=== PATIENT | female | born 1955 | race Caucasian/White ===

== ENCOUNTER 2019-10-31 06:20 | Day surgery (SDC) | payer MEDICAID ==
[2019-10-31] MEDS ORDERED: Lactated Ringers 1,000 ML IV SCH (07:00)
[2019-10-31] MEDS ORDERED: Propofol 200 MG/20 ML SDV ONE (07:33)
[2019-10-31] MEDS ORDERED: fentaNYL 100 MCG/2 ML SDV ONE (07:34)
[2019-10-31] MEDS ORDERED: Midazolam 1 MG/ML 2 ML SDV ONE (07:34)
[2019-10-31] MEDS ORDERED: Ampicillin 2 GM in Sodium Chloride 0.9% 100 ML IV ONE (07:45)
--- NOTE | 2019-10-31 13:34 | OR ---
DATE OF PROCEDURE: 10/31/2019 SURGEON: Ruslan Nunez MD PREOPERATIVE DIAGNOSES: Personal history of precancerous colon polyps, strong family history of colon cancer in sister. POSTOPERATIVE DIAGNOSES: Personal history of precancerous colon polyps, strong family history of colon cancer in sister. Two small colon polyps, transverse colon and rectum. PROCEDURES PERFORMED: Colonoscopy to the cecum with biopsy resection of small transverse colon and rectal polyps. ANESTHESIA: IV anesthesia with monitored anesthesia care. INDICATION: This 64-year-old white female is here for a colonoscopy because of a history of precancerous polyps. Her last colonoscopic exam was done 5 years ago at the [facility]. I counseled her for the procedure, including risks and alternatives, and she gave her informed consent to proceed. DESCRIPTION OF PROCEDURE: The patient was placed in the left lateral decubitus position. IV anesthesia was administered by the anesthesia service. Time-out was held. A rectal exam was performed, which was unremarkable. The flexible video Olympus colonoscope was introduced through her anus, up her rectum and out her colon, all the way to the cecum. En route, in the transverse colon, we saw a small polyp, which was removed with a couple of bites of the biopsy forceps. Once the cecum was reached, the scope was slowly withdrawn examining the mucosa throughout. No additional mucosal abnormalities were noted until we reached the rectum. Here, a small polyp was seen, which was removed with the biopsy forceps. The scope was retroflexed in the rectum with the distal rectum appearing unremarkable. The scope was straightened and removed. She tolerated the procedure well. Ruslan Nunez MD /[id number]
== END 2019-10-31 09:43 | disposition home or self-care (01) ==
LOC: JP.SDS 06:20
PROVIDERS: ATTEND Surgery
DX: Z12.11 Encounter for screening for malignant neoplasm of colon (principal); K63.5 Polyp of colon; K62.89 Other specified diseases of anus and rectum; G47.33 Obstructive sleep apnea (adult) (pediatric); M79.7 Fibromyalgia; E66.9 Obesity, unspecified; Z68.34 Body mass index [BMI] 34.0-34.9, adult; Z99.89 Dependence on other enabling machines and devices; Z86.010 Personal history of colon polyps; Z80.0 Family history of malignant neoplasm of digestive organs
CPT/HCPCS: 45380; J0290; J2250; J2704; J3010; J7030; J7120; 88305

== ENCOUNTER 2019-12-31 12:26 | Emergency (ER) | payer MEDICAID ==
--- NOTE | 2019-12-31 13:44 | EDM.PDOC ---
ED HPI GENERAL MEDICAL PROBLEM - General Chief Complaint: ENT Problem Stated Complaint: L EAR INFECTION Time Seen by Provider: 12/31/19 13:30 Source of Information: Reports: Patient History Limitations: Reports: No Limitations - History of Present Illness INITIAL COMMENTS - FREE TEXT/NARRATIVE: 64-year-old female with left ear pain for the past week, worsening over the past 48 hours despite being on amoxicillin. She had cold symptoms over the past 2 weeks, and tends to get chronic recurring ear infections although it has been good for the past year. No fevers or chills. Onset: Gradual Duration: Day(s): (Several days) Associated Symptoms: Reports: Other (Recent cold symptoms such as nasal congestion, cough and sore throat) Left Ear Pain Score (Numeric/FACES): 8 - Related Data Allergies Allergy/AdvReac Type Severity Reaction Status Date / Time adhesive tape Allergy Rash Verified 12/31/19 12:57 erythromycin base Allergy Other Verified 12/31/19 12:57 glycopyrrolate Allergy Hypertensio Verified 12/31/19 12:57 n meperidine Allergy Hypertensio Verified 12/31/19 12:57 n metoprolol Allergy Rash Verified 12/31/19 12:57 Home Meds: Home Meds Calcium Carbonate/Vitamin D3 [Calcium Carbonate/Vitamin D 600 MG-200 Unit] 1 tab PO DAILY 10/26/19 [History] Estrogens, Conjugated [Premarin Vaginal Crm] 1 applic VAG .Q72 10/26/19 [History ] Nortriptyline 20 mg PO BEDTIME 10/26/19 [History] Pravastatin Sodium 80 mg PO DAILY 10/26/19 [History] FLUoxetine HCl [Fluoxetine HCl] 20 mg PO DAILY 10/31/19 [History] Lansoprazole [Prevacid] 30 mg PO DAILY 10/31/19 [History] Magnesium Oxide [Magnesium] 400 mg PO DAILY 10/31/19 [History] Amoxicillin 875 mg PO BID 12/31/19 [History] Past Medical History HEENT History: Reports: Other (See Below) Other HEENT History: wears glasses Cardiovascular History: Reports: Arrhythmia, Blood Clots/VTE/DVT, High Cholesterol, Hypertension Respiratory History: Reports: Sleep Apnea Gastrointestinal History: Reports: Colon Polyp, Diverticulosis, GERD, Hemorrhoids, Other (See Below) Other Gastrointestinal History: anal fissure, bleeding from polypectomy site after colonoscopy Genitourinary History: Reports: UTI, Recurrent PAINT SPRAY TENDER History: Reports: , Spontaneous , Other (See Below) Other PAINT SPRAY TENDER History: ovarian cysts Musculoskeletal History: Reports: Arthritis, Fibromyalgia, Other (See Below) Other Musculoskeletal History: SI joint pain Psychiatric History: Reports: Anxiety, Depression Endocrine/Metabolic History: Reports: Obesity/BMI 30+ Hematologic History: Reports: Anemia Oncologic (Cancer) History: Reports: Basal Cell Carcinoma, Other (See Below) Other Oncologic History: skin cancer on chin - Infectious Disease History Infectious Disease History: Reports: Chicken Pox, Mumps - Past Surgical History HEENT Surgical History: Reports: Adenoidectomy, Tonsillectomy, Other (See Below) Other HEENT Surgeries/Procedures: deviated septum repaired, 2 teeth implanted GI Surgical History: Reports: Appendectomy, Colonoscopy, EGD Female Surgical History: Reports: Other (See Below) Other Female Surgeries/Procedures: right ovary removed Neurological Surgical History: Reports: Lumbar Spine, Spinal Fusion Musculoskeletal Surgical History: Reports: Other (See Below) Other Musculoskeletal Surgeries/Procedures:: back fusion Nov 2018 Dermatological Surgical History: Reports: Other (See Below) Social & Family History - Tobacco Use Smoking Status *Q: Never Smoker Second Hand Smoke Exposure: No - Caffeine Use Caffeine Use: Reports: Coffee - Alcohol Use Days Per Week of Alcohol Use: 1 Number of Drinks Per Day: 2 Total Drinks Per Week: 2 - Recreational Drug Use Recreational Drug Use: No ED ROS ENT - Review of Systems Review Of Systems: See Below Constitutional: Reports: Malaise. Denies: Fever, Chills HEENT: Reports: Ear Pain Respiratory: Reports: Cough. Denies: Shortness of Breath Cardiovascular: Denies: Chest Pain GI/Abdominal: Denies: Abdominal Pain, Nausea, Vomiting Neurological: Reports: Headache ED EXAM, ENT - Physical Exam Exam: See Below Exam Limited By: No Limitations General Appearance: Alert, No Apparent Distress Eye Exam: Bilateral Eye: Normal Inspection Ears: Other (Right eardrum is normal, left is reddened, bulging, the upper aspect looks wet) Mouth/Throat: Normal Inspection Head: Other (Some palpation tenderness around the anterior left ear and TMJ area ) Neck: No: Lymphadenopathy (R), Lymphadenopathy (L) Respiratory/Chest: No Respiratory Distress Course - Vital Signs Last Recorded V/S: Last Vital Signs Temp 96.8 F 12/31/19 13:07 Pulse 95 12/31/19 13:07 Resp 16 12/31/19 13:07 BP 158/97 H 12/31/19 13:07 Pulse Ox 98 12/31/19 13:07 - Re-Assessments/Exams Free Text/Narrative Re-Assessment/Exam: 12/31/19 13:42 Patient was given 10 hydrocodone to take along with the ibuprofen, and started on clindamycin 300 mg 3 times a day to be added to the amoxicillin regimen. Recheck in 48 to 72 hours if not improving. Departure - Departure Time of Disposition: 14:01 Disposition: Home, Self-Care Clinical Impression: Left otitis media with effusion - Discharge Information Instructions: Otitis Media, Adult Referrals: Malika Cota PA-C [Primary Care Provider] - Forms: ED Department Discharge Care Plan Goals: Continue with the amoxicillin, take 2 pills of antibiotic 3 times a day as prescribed and continue with ibuprofen. Add stronger pain medication as directed if needed, and call the clinic on Thursday if not improving satisfactorily. Sepsis Event Note - Evaluation Sepsis Screening Result: No Definite Risk - Focused Exam Vital Signs: Vital Signs Temp Pulse Resp BP Pulse Ox 12/31/19 13:07 96.8 F 95 16 158/97 H 98 12/31/19 12:51 96.8 F 95 16 158/97 H 98 Date Exam was Performed: 12/31/19 Time Exam was Performed: 14:00
== END 2019-12-31 14:02 | disposition home or self-care (01) ==
LOC: JP.ED 12:26
CPT/HCPCS: 99282

== ENCOUNTER 2021-01-22 09:33 | Emergency (ER) | payer MEDICAID ==
--- NOTE | 2021-01-22 09:56 | EDM.PDOC ---
ED HPI GENERAL MEDICAL PROBLEM - General Chief Complaint: Chest Pain Stated Complaint: CHEST PAIN Time Seen by Provider: 01/22/21 09:54 Source of Information: Reports: Patient, Old Records, RN History Limitations: Reports: No Limitations - History of Present Illness INITIAL COMMENTS - FREE TEXT/NARRATIVE: 65 yo female presents with sternal tenderness that began last night. Is painful with touching area. Has a FHx of CAD, but not a personal hx. No associated symptoms. Has a pHx of fibromyalgia and SI joint inflammation. Onset: Gradual Onset Date: 01/21/21 Duration: Hour(s):, Constant, Getting Worse Location: Reports: Chest Quality: Reports: Ache Severity: Mild Improves with: Reports: Rest Worsens with: Reports: Other (deep breathing or pressing on area. ) Context: Reports: Other (See HPI) Associated Symptoms: Reports: No Other Symptoms, Chest Pain Treatments ACCOUNT INFORMATION CLERK: Reports: Other (see below) (none) Chest Pain Score (Numeric/FACES): 6 - Related Data Allergies Allergy/AdvReac Type Severity Reaction Status Date / Time adhesive tape Allergy Rash Verified 01/22/21 09:52 erythromycin base Allergy Other Verified 01/22/21 09:52 glycopyrrolate Allergy Hypertensio Verified 01/22/21 09:52 n meperidine Allergy Hypertensio Verified 01/22/21 09:52 n metoprolol Allergy Rash Verified 01/22/21 09:52 Home Meds: Home Meds Calcium Carbonate/Vitamin D3 [Calcium Carbonate/Vitamin D 600 MG-200 Unit] 1 tab PO DAILY 10/26/19 [History] Estrogens, Conjugated [Premarin Vaginal Crm] 1 applic VAG .TWICEWEEKLY 10/26/19 [History] Nortriptyline 20 mg PO BEDTIME 10/26/19 [History] Pravastatin Sodium 80 mg PO DAILY 10/26/19 [History] FLUoxetine HCl [Fluoxetine HCl] 20 mg PO DAILY 10/31/19 [History] Lansoprazole [Prevacid] 30 mg PO DAILY 10/31/19 [History] Magnesium Oxide [Magnesium] 400 mg PO DAILY 10/31/19 [History] Past Medical History HEENT History: Reports: Other (See Below) Other HEENT History: wears glasses Cardiovascular History: Reports: Arrhythmia, Blood Clots/VTE/DVT, High Cholesterol, Hypertension Respiratory History: Reports: Sleep Apnea Gastrointestinal History: Reports: Colon Polyp, Diverticulosis, GERD, Hemorrhoids, Other (See Below) Other Gastrointestinal History: anal fissure, bleeding from polypectomy site after colonoscopy Genitourinary History: Reports: UTI, Recurrent RELISH MAKER History: Reports: , Spontaneous , Other (See Below) Other RELISH MAKER History: ovarian cysts Musculoskeletal History: Reports: Arthritis, Fibromyalgia, Other (See Below) Other Musculoskeletal History: SI joint pain Psychiatric History: Reports: Anxiety, Depression Endocrine/Metabolic History: Reports: Obesity/BMI 30+ Hematologic History: Reports: Anemia Oncologic (Cancer) History: Reports: Basal Cell Carcinoma, Other (See Below) Other Oncologic History: skin cancer on chin - Infectious Disease History Infectious Disease History: Reports: Chicken Pox, Mumps - Past Surgical History HEENT Surgical History: Reports: Adenoidectomy, Tonsillectomy, Other (See Below) Other HEENT Surgeries/Procedures: deviated septum repaired, 2 teeth implanted GI Surgical History: Reports: Appendectomy, Colonoscopy, EGD Female Surgical History: Reports: Other (See Below) Other Female Surgeries/Procedures: right ovary removed Neurological Surgical History: Reports: Lumbar Spine, Spinal Fusion Musculoskeletal Surgical History: Reports: Other (See Below) Other Musculoskeletal Surgeries/Procedures:: back fusion Nov 2018 Dermatological Surgical History: Reports: Other (See Below) Social & Family History - Caffeine Use Caffeine Use: Reports: Coffee ED ROS GENERAL - Review of Systems Review Of Systems: See Below Constitutional: Reports: No Symptoms HEENT: Reports: No Symptoms Respiratory: Reports: No Symptoms Cardiovascular: Reports: Chest Pain Endocrine: Reports: No Symptoms GI/Abdominal: Reports: No Symptoms : Reports: No Symptoms Musculoskeletal: Reports: No Symptoms Skin: Reports: No Symptoms Neurological: Reports: No Symptoms Psychiatric: Reports: No Symptoms ED EXAM, GENERAL - Physical Exam Exam: See Below Exam Limited By: No Limitations General Appearance: Alert, WD/WN, No Apparent Distress, Obese Eye Exam: Bilateral Eye: Normal Inspection Ears: Normal External Exam, Normal Canal, Hearing Grossly Normal Ear Exam: Bilateral Ear: Auricle Normal, Canal Normal Nose: Normal Inspection, No Blood Throat/Mouth: Normal Inspection, Normal Lips, Normal Oropharynx, Normal Voice, No Airway Compromise Head: Atraumatic, Normocephalic Neck: Normal Inspection Respiratory/Chest: No Respiratory Distress, Lungs Clear, Normal Breath Sounds, No Accessory Muscle Use. No: Chest Non-Tender (sternal tenderness, especially at L lateral border) Cardiovascular: Regular Rate, Rhythm, No Edema GI/Abdominal: Soft, Non-Tender, No Distention Extremities: Normal Inspection, Normal Range of Motion, Non-Tender, No Pedal Edema Neurological: Alert, Oriented, CN II-XII Intact, Normal Cognition, No Motor/Sensory Deficits Psychiatric: Normal Affect, Normal Mood Skin Exam: Warm, Dry, Intact, Normal Color, No Rash #1 Interpretation EKG Date: 01/22/21 Time: 09:45 Rhythm: NSR Rate (Beats/Min): 93 [place]: Normal P-Wave: Present QRS: Other (left anterior fascicular block) ST-T: Normal QT: Normal Comparison: NA - No Prior EKG Course - Vital Signs Last Recorded V/S: Last Vital Signs Temp 36.2 C 01/22/21 09:56 Pulse 92 01/22/21 09:56 Resp 14 01/22/21 09:56 BP 141/93 H 01/22/21 09:56 Pulse Ox 95 01/22/21 09:56 - Orders/Labs/Meds Orders: Active Orders 24 hr Category Date Time Status EKG Documentation Completion [RC] ASDIRECTED Care 01/22/21 09:46 Active EKG 12 Lead [EK] Routine Ther 01/22/21 09:46 Ordered Meds: Medications Discontinued Medications Generic Name Dose Route Start Last Admin Trade Name [place] PRN Reason Stop Dose Admin Ketorolac Tromethamine 60 mg 01/22/21 10:06 01/22/21 10:26 Toradol IM 01/22/21 10:07 60 mg ONETIME ONE Administration - Re-Assessments/Exams Free Text/Narrative Re-Assessment/Exam: 01/22/21 11:07 partial relief with Toradol IM Departure - Departure Time of Disposition: 11:10 Disposition: Home, Self-Care 01 Condition: Good Clinical Impression: Costochondritis Instructions: Costochondritis, [id number] Referrals: Malika Cota PA-C [Primary Care Provider] - Forms: ED Department Discharge Additional Instructions: Take celecoxib as directed. Add acetaminophen for added relief. Recheck with your provider by Thursday afternoon. Sepsis Event Note (ED) - Focused Exam Vital Signs: Vital Signs Temp Pulse Resp BP Pulse Ox 01/22/21 09:56 36.2 C 92 14 141/93 H 95 01/22/21 09:51 36.2 C 92 14 141/93 H 95 - My Orders Last 24 Hours: My Active Orders 01/22/21 09:46 EKG Documentation Completion [RC] ASDIRECTED EKG 12 Lead [EK] Routine - Assessment/Plan Last 24 Hours: My Active Orders 01/22/21 09:46 EKG Documentation Completion [RC] ASDIRECTED EKG 12 Lead [EK] Routine
[2021-01-22] MEDS ORDERED: Ketorolac 60 MG/2 ML SDV IM ONE (10:06)
== END 2021-01-22 11:17 | disposition home or self-care (01) ==
LOC: JP.ED 09:33
DX: M94.0 Chondrocostal junction syndrome [Tietze] (principal); I44.4 Left anterior fascicular block; E78.00 Pure hypercholesterolemia, unspecified; I10 Essential (primary) hypertension; K21.9 Gastro-esophageal reflux disease without esophagitis; E66.9 Obesity, unspecified; Z68.45 Body mass index [BMI] 70 or greater, adult; Z91.048 Other nonmedicinal substance allergy status; Z88.1 Allergy status to other antibiotic agents; Z88.8 Allergy status to other drugs, medicaments and biological substances; Z79.899 Other long term (current) drug therapy
CPT/HCPCS: 93005; 96372; 99283; 99284; J1885

== ENCOUNTER 2021-07-20 17:23 | Observation (INO) | payer MEDICAID ==
--- NOTE | 2021-07-20 18:07 | EDM.PDOC ---
ED HPI GENERAL MEDICAL PROBLEM - General Chief Complaint: Lower Extremity Injury/Pain Stated Complaint: FELL, KNEE GAVE OUT Time Seen by Provider: 07/20/21 18:06 Source of Information: Reports: Patient, RN Notes Reviewed History Limitations: Reports: No Limitations - History of Present Illness INITIAL COMMENTS - FREE TEXT/NARRATIVE: Amanda presents today with complaints of fall while walking down stairs. she states she fell forward onto her left knee and breanne her left thigh and hip. She states she cannot walk on her left leg, she was not able to get up without assistance of her . She reports a history of chronic back pain from L4 to S1 with bilateral SI joint pain. She also reports numbness and lack of sensation to left heel and left lateral foot status post spinal surgery. She states this is chronic. Amanda reports intermittent nausea with pain, denies vomiting at this time. She denies left foot drop. She denies LOC, fever, chills, bladder or bowel issues. - Related Data Allergies Allergy/AdvReac Type Severity Reaction Status Date / Time adhesive tape Allergy Rash Verified 07/20/21 17:42 erythromycin base Allergy Other Verified 07/20/21 17:42 glycopyrrolate Allergy Hypertensio Verified 07/20/21 17:42 n meperidine Allergy Hypertensio Verified 07/20/21 17:42 n metoprolol Allergy Rash Verified 07/20/21 17:42 Home Meds: Home Meds Calcium Carbonate/Vitamin D3 [Calcium Carbonate/Vitamin D 600 MG-200 Unit] 1 tab PO DAILY 10/26/19 [History] Estrogens, Conjugated [Premarin Vaginal Crm] 1 applic VAG .TWICEWEEKLY 10/26/19 [History] Nortriptyline 20 mg PO BEDTIME 10/26/19 [History] Pravastatin Sodium 80 mg PO BEDTIME 10/26/19 [History] FLUoxetine HCl [Fluoxetine HCl] 20 mg PO DAILY 10/31/19 [History] Lansoprazole [Prevacid] 30 mg PO DAILY 10/31/19 [History] Magnesium Oxide [Magnesium] 400 mg PO DAILY 10/31/19 [History] Past Medical History HEENT History: Reports: Impaired Vision, Other (See Below) Other HEENT History: wears glasses Cardiovascular History: Reports: Arrhythmia, Blood Clots/VTE/DVT, High Cholesterol, Hypertension Respiratory History: Reports: Sleep Apnea Other Respiratory History: c-pap Gastrointestinal History: Reports: Colon Polyp, Diverticulosis, GERD, Hemorrhoids, Other (See Below) Other Gastrointestinal History: anal fissure, bleeding from polypectomy site after colonoscopy Genitourinary History: Reports: UTI, Recurrent 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: , 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 , Other (See Below) Other 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 TELECOMMUNICATIONS 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 History: ovarian cysts Musculoskeletal History: Reports: Arthritis, Fibromyalgia, Other (See Below) Other Musculoskeletal History: SI joint pain Psychiatric History: Reports: Anxiety, Depression Endocrine/Metabolic History: Reports: Obesity/BMI 30+ Hematologic History: Reports: Anemia Oncologic (Cancer) History: Reports: Basal Cell Carcinoma, Other (See Below) Other Oncologic History: skin cancer on chin - Infectious Disease History Infectious Disease History: Reports: Chicken Pox, Influenza, Mumps - Past Surgical History HEENT Surgical History: Reports: Adenoidectomy, Tonsillectomy, Other (See Below) Other HEENT Surgeries/Procedures: deviated septum repaired, 2 teeth implanted GI Surgical History: Reports: Appendectomy, Colonoscopy, EGD Female Surgical History: Reports: Other (See Below) Other Female Surgeries/Procedures: right ovary removed Neurological Surgical History: Reports: Lumbar Spine, Spinal Fusion Musculoskeletal Surgical History: Reports: Other (See Below) Other Musculoskeletal Surgeries/Procedures:: back fusion Nov 2018 and Fx L3 after a fall Dermatological Surgical History: Reports: Other (See Below) Social & Family History - Tobacco Use Tobacco Use Status *Q: Never Tobacco User Second Hand Smoke Exposure: No - Caffeine Use Caffeine Use: Reports: Coffee Other Caffeine Use: 2 large cups of coffee every morning - Alcohol Use Days Per Week of Alcohol Use: 2 Number of Drinks Per Day: 2 Total Drinks Per Week: 4 - Recreational Drug Use Recreational Drug Use: No Review of Systems - Review of Systems Review Of Systems: See Below Constitutional: Reports: No Symptoms Eyes: Reports: No Symptoms Ears: Reports: No Symptoms Nose: Reports: No Symptoms Mouth/Throat: Reports: No Symptoms Respiratory: Reports: No Symptoms Cardiovascular: Reports: No Symptoms GI/Abdominal: Reports: No Symptoms Genitourinary: Reports: No Symptoms Musculoskeletal: Reports: Leg Pain, Other (pain to right index finger, pain to left knee, left thigh and left hip. Not able to ambulate. She reports chronic back and SI joing pain, chronic pain to bilateral knees and chronic numbness to left heel, left lateral foot. ) Skin: Reports: Other (Abrasion to bilateral knees, right index finger, right hand, left wrist). Denies: Erythema Neurological: Reports: No Symptoms Psychiatric: Reports: No Symptoms ED EXAM, GENERAL - Physical Exam Exam: See Below Exam Limited By: No Limitations General Appearance: Alert, WD/WN, Moderate Distress Eye Exam: Bilateral Eye: Normal Inspection, PERRL Ears: Normal External Exam, Normal Canal, Hearing Grossly Normal, Normal TMs Ear Exam: Bilateral Ear: TM normal Nose: Normal Inspection, Normal Mucosa, No Blood Throat/Mouth: Normal Inspection, Normal Lips, Normal Gums, Normal Oropharynx, Normal Voice, No Airway Compromise Head: Atraumatic, Normocephalic Neck: Normal Inspection, Supple, Non-Tender, Full Range of Motion. No: Lymphadenopathy (R), Lymphadenopathy (L) Respiratory/Chest: No Respiratory Distress, Lungs Clear, Normal Breath Sounds, No Accessory Muscle Use, Chest Non-Tender Cardiovascular: Normal Peripheral Pulses, Regular Rate, Rhythm, No Edema, No Gallop, No Murmur, No Rub Peripheral Pulses: 4+: Radial (L), Radial (R), Dorsalis Pedis (L), Dorsalis Pedis (R) GI/Abdominal: Normal Bowel Sounds, Soft, Non-Tender, No Organomegaly, No Distention. No: Guarding, Rigid, Rebound, Tender (Female) Exam: Deferred Rectal (Female) Exam: Deferred Back Exam: Normal Inspection (per her baseline of chronic low back pain, SI joint pain). No: CVA Tenderness (R), CVA Tenderness (L) Extremities: No Pedal Edema, Normal Capillary Refill, Leg Pain (pain to left knee, left femur and left hip, significant pain with ROM, muscle spasm right ), Limited Range of Motion. No: Increased Warmth, Redness Neurological: Alert, Oriented, Normal Cognition, No Motor/Sensory Deficits, Other (not able to ambulate due to pain of left knee, left hip) Psychiatric: Normal Affect, Normal Mood Skin Exam: Warm, Dry, Normal Color, No Rash, Other (abrasion to right hand, right index finger, bilateral knees no significant bleeding) Lymphatic: No Adenopathy Course - Vital Signs Last Recorded V/S: Last Vital Signs Temp 36.1 C 07/21/21 00:16 Pulse 71 07/21/21 00:16 Resp 16 07/21/21 00:16 BP 162/81 H 07/21/21 00:16 Pulse Ox 96 07/21/21 00:16 - Orders/Labs/Meds Orders: Active Orders 24 hr Category Date Time Status Patient Status [ADT] Routine ADT 07/20/21 23:15 Active Oxygen Therapy [RC] PRN Care 07/20/21 23:15 Active Vital Signs [RC] Q4H Care 07/20/21 23:15 Active Regular Diet [DIET] Diet 07/20/21 Breakfast Active Femur Min 2V Lt [CR] Stat Exams 07/20/21 19:24 Taken Hand Comp Min 3V Rt [CR] Stat Exams 07/20/21 19:02 Taken Knee 3V Lt [CR] Stat Exams 07/20/21 18:29 Taken Acetaminophen [TylenoL] Med 07/20/21 23:14 Active 650 mg PO Q4H PRN Morphine Med 07/20/21 23:14 Active 2 mg IVPUSH Q2H PRN Sodium Chloride 0.9% [Saline Flush] Med 07/20/21 22:48 Active 10 ml FLUSH ASDIRECTED PRN Saline Lock Insert [OM.PC] Routine Oth 07/20/21 22:48 Ordered Resuscitation Status Routine Resus Stat 07/20/21 23:14 Ordered Medication Orders Acetaminophen (Acetaminophen 325 Mg Tab) 650 mg PO Q4H PRN PRN Reason: Pain (Mild 1-3)/fever Hydromorphone HCl (Hydromorphone 0.5 Mg/0.5 Ml Syringe) 0.5 mg IVPUSH Q4H PRN PRN Reason: Pain (severe 7-10) Last Admin: 07/21/21 00:00 Dose: 0.5 mg Documented by: BRYAN Morphine Sulfate (Morphine 2 Mg/Ml Syringe) 2 mg IVPUSH Q2H PRN PRN Reason: Pain (moderate 4-6) Sodium Chloride (Sodium Chloride 0.9% 10 Ml Syringe) 10 ml FLUSH ASDIRECTED PRN PRN Reason: Keep Vein Open Meds: Medications Generic Name Dose Route Start Last Admin Trade Name Freq PRN Reason Stop Dose Admin Acetaminophen 650 mg 07/20/21 23:14 Acetaminophen 325 Mg Tab PO Q4H PRN Pain (Mild 1-3)/fever Hydromorphone HCl 0.5 mg 07/20/21 23:20 07/21/21 00:00 Hydromorphone 0.5 Mg/0.5 Ml Syringe IVPUSH 0.5 mg Q4H PRN Administration Pain (severe 7-10) Morphine Sulfate 2 mg 07/20/21 23:14 Morphine 2 Mg/Ml Syringe IVPUSH Q2H PRN Pain (moderate 4-6) Sodium Chloride 10 ml 07/20/21 22:48 Sodium Chloride 0.9% 10 Ml Syringe FLUSH ASDIRECTED PRN Keep Vein Open Discontinued Medications Generic Name Dose Route Start Last Admin Trade Name Freq PRN Reason Stop Dose Admin Baclofen 10 mg 07/20/21 22:05 07/21/21 00:00 Baclofen 10 Mg Tab PO 07/20/21 22:06 10 mg ONETIME ONE Administration Cyclobenzaprine HCl 10 mg 07/20/21 19:58 07/20/21 20:20 Cyclobenzaprine 10 Mg Tab PO 07/20/21 19:59 10 mg ONETIME ONE Administration Fentanyl 100 mcg 07/20/21 18:40 Fentanyl 100 Mcg/2 Ml Sdv IM 07/20/21 18:41 ONETIME ONE Hydromorphone HCl 0.5 mg 07/20/21 18:41 07/20/21 18:47 Hydromorphone 0.5 Mg/0.5 Ml Syringe IM 07/20/21 18:42 0.5 mg ONETIME ONE Administration Hydromorphone HCl 0.5 mg 07/20/21 19:58 07/20/21 20:20 Hydromorphone 0.5 Mg/0.5 Ml Syringe IM 07/20/21 19:59 0.5 mg ONETIME ONE Administration Ondansetron HCl 4 mg 07/20/21 18:40 07/20/21 18:47 Ondansetron 4 Mg Tab.Dis PO 07/20/21 18:41 4 mg ONETIME ONE Administration Tramadol HCl 50 mg 07/20/21 18:29 Tramadol 50 Mg Tab PO 07/20/21 18:30 ONETIME ONE - Re-Assessments/Exams Free Text/Narrative Re-Assessment/Exam: 07/20/21 20:10 Patient suffering worsening of pain while in radiology for x-rays. We will administer additional dialudid and provide cyclobenzaprine as ordered. Left Hip x-ray does not show any acute findings, we will complete CT of left hip without contrast. Patient in agreement with plan. Right hand x-rays wet read and reviewed, no acute findings noted. 07/20/21 21:23 Mo Tolbert consulted, he will review x-rays. 07/20/21 21:30 Mo Tolbert returned with recommendations. No hip fracture identified on CT or left hip films. Left knee shows non-displaced intercondylar fracture left femur. Amanda will need a left knee immobilizer, walker with pain medication. toe touch, and follow up with Mo this for recheck. Recommended oxycodone for pain. 07/20/21 22:25 Attempted to use knee immobilizer and to assist patient to get out of bed, unsuccessful due to significant pain and pressure to left knee/leg. Patient assisted back to bed. Spring knee immobilizer with angle lock obtained and placed for support. Dr. Evans hospitalist contacted, she is in agreement to admit patient overnight for observation for pain management. Patient and her in agreement. 07/20/21 22:45 Departure - Departure Time of Disposition: 22:05 Disposition: Refer to Observation Condition: Fair Clinical Impression: Fall Nondisp supracondyl fx of left distal femur with intracondyl extension Qualifiers: Encounter type: initial encounter Fracture type: closed Qualified Code(s): S72.465A - Nondisplaced supracondylar fracture with intracondylar extension of lower end of left femur, initial encounter for closed fracture - Discharge Information Sepsis Event Note (ED) - Evaluation Sepsis Screening Result: No Definite Risk - Focused Exam Vital Signs: Vital Signs Temp Pulse Resp BP Pulse Ox 07/20/21 20:43 64 152/79 H 96 07/20/21 19:42 75 147/79 H 07/20/21 17:44 35.8 C L 75 16 182/98 H 97 - My Orders Last 24 Hours: My Active Orders 07/20/21 18:29 Knee 3V Lt [CR] Stat 07/20/21 19:02 Hand Comp Min 3V Rt [CR] Stat 07/20/21 19:24 Femur Min 2V Lt [CR] Stat 07/20/21 22:48 Sodium Chloride 0.9% [Saline Flush] 10 ml FLUSH ASDIRECTED PRN Saline Lock Insert [OM.PC] Routine - Assessment/Plan Last 24 Hours: My Active Orders 07/20/21 18:29 Knee 3V Lt [CR] Stat 07/20/21 19:02 Hand Comp Min 3V Rt [CR] Stat 07/20/21 19:24 Femur Min 2V Lt [CR] Stat 07/20/21 22:48 Sodium Chloride 0.9% [Saline Flush] 10 ml FLUSH ASDIRECTED PRN Saline Lock Insert [OM.PC] Routine Assessment:: Nondisp supracondyl fx of left distal femur with intracondyl extension Uncontrolled pain Fall Amanda will be admitted per Dr. Evans. Patient and in agreement with plan. Plan: 07/20/21 22:25 Attempted to use knee immobilizer and to assist patient to get out of bed, unsuccessful due to significant pain and pressure to left knee/leg. Patient assisted back to bed. Spring knee immobilizer with angle lock obtained and placed for support. Dr. Evans hospitalist contacted, she is in agreement to admit patient overnight for observation for pain management. Patient will follow up with Mo [facility] July 25.
[2021-07-20] MEDS ORDERED: traMADol 50 MG Tab PO ONE (18:29)
[2021-07-20] MEDS ORDERED: fentaNYL 100 MCG/2 ML SDV IM ONE (18:40)
[2021-07-20] MEDS ORDERED: Ondansetron 4 MG Tab.DIS PO ONE (18:40)
[2021-07-20] MEDS ORDERED: HYDROmorphone 0.5 MG/0.5 ML Syringe IM ONE ×2 (18:41→19:58)
[2021-07-20] MEDS ORDERED: Cyclobenzaprine 10 MG Tab PO ONE (19:58)
--- NOTE | 2021-07-20 21:01 | CRLCT ---
For Patients: As a result of the Cures Act, medical imaging exams and procedure reports are released immediately into your electronic medical record. You may view this report before your referring provider. If you have questions, please contact your health care provider. HISTORY: Fall. Left hip pain. TECHNIQUE: CT left hip without contrast. COMPARISON: Left femur radiographs same day. FINDINGS: No fracture. Mild osteoarthritis of the left hip. Degenerative changes the pubic symphysis and sacroiliac joints. Fusion at L4-S1 with bilateral pedicle screws and rods. No lytic or blastic bone lesions. No soft tissue hematoma. No lymphadenopathy. IMPRESSION: 1. No fracture. No acute findings. 2. Mild osteoarthritis of the left hip. Please note that all CT scans at this facility use dose modulation, iterative reconstruction, and/or weight-based dosing when appropriate to reduce radiation dose to as low as reasonably achievable. Dictated by Roscoe Bell MD @ 07/20/2021 9:00:[address] Roscoe Bell @ Jul 20 2021 9:00PM
[2021-07-20] MEDS ORDERED: Baclofen 10 MG Tab PO ONE (22:05)
[2021-07-20] MEDS ORDERED: Sodium Chloride 0.9% 10 ML Syringe FLUSH PRN (22:48)
--- NOTE | 2021-07-20 23:31 | PCM.HP.2 ---
H&P History of Present Illness - General Date of Service: 07/20/21 Admit Problem/Dx: Admission Diagnosis/Problem Admission Diagnosis/Problem Fracture of femur Source of Information: Patient, Significant Other History Limitations: Reports: No Limitations - History of Present Illness Initial Comments - Free Text/Narative: Ms. johnson is a 66-year-old female who went out to get her mail today and fell forward off of her front step down 1 step and landed on her left knee. She states that when she hit the left knee it felt like the knee and leg pushed up into the hip. She was in significant amounts of pain and her brought her to the hospital. In the ER x-rays were taken which showed a nondisplaced intercondylar fracture of the left femur. She was given a left knee immobilizer and a walker. Mo Tolbert from [facility] gave his recommendations and will follow up with her on . She was getting pain control with tramadol then Dilaudid and was requiring significant amounts of pain medication to get her pain under control. There was concern that if she went home the pain would not be controlled especially if she were up moving about trying to get into her house which has several stairs at the entrance. Therefore we will admit her for observation for pain control. In November 2018 she had lower back spinal fusion and during that time she was told that she has evidence of osteoporosis which was not checked prior to surgery as she had no indications for osteoporosis. Her mother did have osteoporosis at a young age. Since that surgery she has had a vertebral fracture from a fall from standing. After that she was placed on calcium and vitamin D. She has not taken any bisphosphonates or Prolia. I did discuss with her these options and recommended that she talk to her primary care physician about being evaluated and assessed for osteoporosis and getting on a medication along with continuation of the calcium and vitamin D. - Related Data Allergies/Adverse Reactions: Allergies Allergy/AdvReac Type Severity Reaction Status Date / Time adhesive tape Allergy Rash Verified 07/20/21 17:42 erythromycin base Allergy Other Verified 07/20/21 17:42 glycopyrrolate Allergy Hypertensio Verified 07/20/21 17:42 n meperidine Allergy Hypertensio Verified 07/20/21 17:42 n metoprolol Allergy Rash Verified 07/20/21 17:42 Home Medications: Home Meds Calcium Carbonate/Vitamin D3 [Calcium Carbonate/Vitamin D 600 MG-200 Unit] 1 tab PO DAILY 10/26/19 [History] Estrogens, Conjugated [Premarin Vaginal Crm] 1 applic VAG .TWICEWEEKLY 10/26/19 [History] Nortriptyline 20 mg PO BEDTIME 10/26/19 [History] Pravastatin Sodium 80 mg PO DAILY 10/26/19 [History] FLUoxetine HCl [Fluoxetine HCl] 20 mg PO DAILY 10/31/19 [History] Lansoprazole [Prevacid] 30 mg PO DAILY 10/31/19 [History] Magnesium Oxide [Magnesium] 400 mg PO DAILY 10/31/19 [History] Past Medical History HEENT History: Reports: Impaired Vision, Other (See Below) Other HEENT History: wears glasses Cardiovascular History: Reports: Arrhythmia, Blood Clots/VTE/DVT, High Cholesterol, Hypertension Respiratory History: Reports: Sleep Apnea Other Respiratory History: c-pap Gastrointestinal History: Reports: Colon Polyp, Diverticulosis, GERD, Hemorrhoids, Other (See Below) Other Gastrointestinal History: anal fissure, bleeding from polypectomy site after colonoscopy Genitourinary History: Reports: UTI, Recurrent 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: , 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 , Other (See Below) Other OB/BYN History: ovarian cysts Musculoskeletal History: Reports: Arthritis, Fibromyalgia, Other (See Below) Other Musculoskeletal History: SI joint pain Psychiatric History: Reports: Anxiety, Depression Endocrine/Metabolic History: Reports: Obesity/BMI 30+ Hematologic History: Reports: Anemia Oncologic (Cancer) History: Reports: Basal Cell Carcinoma, Other (See Below) Other Oncologic History: skin cancer on chin - Infectious Disease History Infectious Disease History: Reports: Chicken Pox, Influenza, Mumps - Past Surgical History HEENT Surgical History: Reports: Adenoidectomy, Tonsillectomy, Other (See Below) Other HEENT Surgeries/Procedures: deviated septum repaired, 2 teeth implanted GI Surgical History: Reports: Appendectomy, Colonoscopy, EGD Female Surgical History: Reports: Other (See Below) Other Female Surgeries/Procedures: right ovary removed Neurological Surgical History: Reports: Lumbar Spine, Spinal Fusion Musculoskeletal Surgical History: Reports: Other (See Below) Other Musculoskeletal Surgeries/Procedures:: back fusion Nov 2018 and Fx L3 after a fall Dermatological Surgical History: Reports: Other (See Below) Social & Family History - Tobacco Use Tobacco Use Status *Q: Never Tobacco User Second Hand Smoke Exposure: No - Caffeine Use Caffeine Use: Reports: Coffee Other Caffeine Use: 2 large cups of coffee every morning - Alcohol Use Days Per Week of Alcohol Use: 2 Number of Drinks Per Day: 2 Total Drinks Per Week: 4 - Recreational Drug Use Recreational Drug Use: No H&P Review of Systems - Review of Systems: Review Of Systems: See Below General: Reports: No Symptoms HEENT: Reports: No Symptoms Pulmonary: Reports: No Symptoms Cardiovascular: Reports: No Symptoms Gastrointestinal: Reports: No Symptoms Genitourinary: Reports: No Symptoms Musculoskeletal: Reports: Leg Pain, Muscle Pain Skin: Reports: No Symptoms Psychiatric: Reports: No Symptoms Neurological: Reports: No Symptoms Hematologic/Lymphatic: Reports: No Symptoms Immunologic: Reports: No Symptoms Exam - Exam Exam: See Below - Vital Signs Vital Signs: Last Vital Signs Temp 96.4 F L 07/20/21 17:44 Pulse 64 07/20/21 20:43 Resp 16 07/20/21 17:44 BP 152/79 H 07/20/21 20:43 Pulse Ox 96 07/20/21 20:43 Weight: 230 lb - Exam General: Alert, Oriented, Cooperative, Mild Distress HEENT: PERRLA, Conjunctiva Clear, EOMI, Hearing Intact Neck: Supple, Trachea Midline Lungs: Clear to Auscultation, Normal Respiratory Effort Cardiovascular: Regular Rate, Regular Rhythm GI/Abdominal Exam: Normal Bowel Sounds, Soft, Non-Tender, No Distention Extremities: Leg Pain, Other (Immobilizer in place) Skin: Warm, Dry, Intact Neuro Extensive - Mental Status: Alert, Oriented x3, Normal Mood/Affect Psychiatric: Alert, Normal Affect, Normal Mood Sepsis Event Note - Evaluation Sepsis Screening Result: No Definite Risk - Focused Exam Vital Signs: Vital Signs Temp Pulse Resp BP Pulse Ox 07/20/21 20:43 64 152/79 H 96 07/20/21 19:42 75 147/79 H 07/20/21 17:44 96.4 F L 75 16 182/98 H 97 - Problem List (1) Acute pain due to trauma SNOMED Code(s): 191007426 ICD Code: G89.11 - ACUTE PAIN DUE TO TRAUMA Status: Acute Current Visit: Yes (2) Nondisp supracondyl fx of left distal femur with intracondyl extension SNOMED Code(s): 387210479, 466527720, [id number] ICD Code: S72.465A - NONDISP SUPRCNDL FX W INTRCNDL EXTN LOWER END L FEMUR, INIT Status: Acute Current Visit: Yes Qualifiers: Encounter type: initial encounter Fracture type: closed Qualified Code(s): S72.465A - Nondisplaced supracondylar fracture with intracondylar extension of lower end of left femur, initial encounter for closed fracture Problem List Initiated/Reviewed/Updated: Yes Orders Last 24hrs: Active Orders 24 hr Category Date Time Status Patient Status [ADT] Routine ADT 07/20/21 23:15 Ordered Oxygen Therapy [RC] PRN Care 07/20/21 23:15 Ordered VTE/DVT Education [RC] Per Unit Routine Care 07/20/21 23:15 Ordered Vital Signs [RC] Q4H Care 07/20/21 23:15 Ordered Regular Diet [DIET] Diet 07/20/21 Breakfast Ordered Femur Min 2V Lt [CR] Stat Exams 07/20/21 19:24 Taken Hand Comp Min 3V Rt [CR] Stat Exams 07/20/21 19:02 Taken Knee 3V Lt [CR] Stat Exams 07/20/21 18:29 Taken Acetaminophen [TylenoL] Med 07/20/21 23:14 Ordered 650 mg PO Q4H PRN HYDROmorphone [Dilaudid] Med 07/20/21 23:20 Ordered 0.5 mg IVPUSH Q4H PRN Morphine Med 07/20/21 23:14 Ordered 2 mg IVPUSH Q2H PRN Sodium Chloride 0.9% [Saline Flush] Med 07/20/21 22:48 Active 10 ml FLUSH ASDIRECTED PRN Saline Lock Insert [OM.PC] Routine Oth 07/20/21 22:48 Ordered Resuscitation Status Routine Resus Stat 07/20/21 23:14 Ordered Medication Orders Acetaminophen (Acetaminophen 325 Mg Tab) 650 mg PO Q4H PRN PRN Reason: Pain (Mild 1-3)/fever Hydromorphone HCl (Hydromorphone 0.5 Mg/0.5 Ml Syringe) 0.5 mg IVPUSH Q4H PRN PRN Reason: Pain (severe 7-10) Morphine Sulfate (Morphine 2 Mg/Ml Syringe) 2 mg IVPUSH Q2H PRN PRN Reason: Pain (moderate 4-6) Sodium Chloride (Sodium Chloride 0.9% 10 Ml Syringe) 10 ml FLUSH ASDIRECTED PRN PRN Reason: Keep Vein Open Assessment/Plan Comment:: Left intercondylar femur fracture with acute pain secondary to fall from step -Dilaudid 2 mg every 4 as needed severe pain, morphine 2 mg every 4 for moderate pain -Continue to use immobilizer brace VTE prophylaxis: Not indicated GI prophylaxis: Not indicated CODE STATUS: Full code Diet: Regular Disposition: Patient will be admitted for observation. I do not expect her stay to last more than 2 midnights. Plan: Do intensive pain control overnight and taper tomorrow down to a dose that can be given orally to send her home. The goal of pain is a 6 or better I did discuss his pain goal with the patient and her and they are on board. Renae Evans, DO - Mortality Measure Prognosis:: Good
[2021-07-21] MEDS: Morphine 2 MG/ML SYRINGE IVPUSH PRN ×2 (00:34→03:22)
[2021-07-21] MEDS: Acetaminophen 325 MG Tab PO PRN (02:47)
[2021-07-21] MEDS: Cyclobenzaprine 10 MG Tab PO PRN ×2 (03:46→21:29)
[2021-07-21] MEDS: HYDROmorphone 0.5 MG/0.5 ML Syringe IVPUSH PRN ×2 (04:51)
[2021-07-21] MEDS ORDERED: Ondansetron 4 MG Tab.DIS PO PRN (08:10)
[2021-07-21] MEDS: Acetaminophen/HYDROcodone 325-5 MG Tab PO PRN ×3 (09:45→19:41)
[2021-07-21] MEDS: Pravastatin 20 MG Tab PO SCH (20:40)
[2021-07-21] MEDS: Nortriptyline 10 MG Cap PO SCH (20:40)
--- NOTE | 2021-07-21 21:56 | PCM.PN ---
- General Info Date of Service: 07/21/21 Admission Dx/Problem (Free Text): Admission Diagnosis/Problem Admission Diagnosis/Problem Fracture of femur, pain secondary to acute trauma Subjective Update: Ms. Mckenzie's pain is well tolerated today on oral medications and we had planned to send her home however she is not able to be nonweightbearing on the left leg. I would like PT to come see her. She does have a substantial amount of stairs going into her home and to the bathroom and bedroom. Her house is a 4 level split so there are stairs everywhere. We will have her see PT tomorrow Functional Status: Reports: Pain Controlled, Tolerating Diet, Urinating. Denies: New Symptoms - Review of Systems General: Reports: No Symptoms HEENT: Reports: No Symptoms Pulmonary: Reports: No Symptoms Cardiovascular: Reports: No Symptoms Gastrointestinal: Reports: No Symptoms Genitourinary: Reports: No Symptoms Musculoskeletal: Reports: Leg Pain Skin: Reports: No Symptoms Neurological: Reports: No Symptoms Psychiatric: Reports: No Symptoms - Patient Data Vitals - Most Recent: Last Vital Signs Temp 98 F 07/21/21 19:13 Pulse 91 07/21/21 19:13 Resp 16 07/21/21 19:13 BP 157/75 H 07/21/21 19:13 Pulse Ox 95 07/21/21 19:13 Weight - Most Recent: 242 lb 11.663 oz I&O - Last 24 Hours: Intake & Output 07/21/21 07/21/21 07/21/21 06:59 14:59 22:59 Intake Total 920 Balance 920 Med Orders - Current: Current Medications Acetaminophen (Acetaminophen 325 Mg Tab) 650 mg PO Q4H PRN PRN Reason: Pain (Mild 1-3)/fever Last Admin: 07/21/21 02:47 Dose: 650 mg Documented by: Hydrocodone Bitart/Acetaminophen (Acetaminophen/Hydrocodone 325-5 Mg Tab) 1 - 2 tab PO Q4H PRN PRN Reason: Pain Last Admin: 07/21/21 19:41 Dose: 2 tab Documented by: Cyclobenzaprine HCl (Cyclobenzaprine 10 Mg Tab) 10 mg PO Q6H PRN PRN Reason: Muscle Spasm - Painful Last Admin: 07/21/21 21:29 Dose: 10 mg Documented by: Fluoxetine HCl (Fluoxetine 20 Mg Cap) 20 mg PO DAILY [facility] Nortriptyline HCl (Nortriptyline 10 Mg Cap) 20 mg PO BEDTIME [facility] Last Admin: 07/21/21 20:40 Dose: 20 mg Documented by: Ondansetron HCl (Ondansetron 4 Mg Tab.Dis) 4 mg PO Q4H PRN PRN Reason: Nausea/Vomiting Last Admin: 07/21/21 09:45 Dose: 4 mg Documented by: Pravastatin Sodium (Pravastatin 20 Mg Tab) 80 mg PO BEDTIME [facility] Last Admin: 07/21/21 20:40 Dose: 80 mg Documented by: Sodium Chloride (Sodium Chloride 0.9% 10 Ml Syringe) 10 ml FLUSH ASDIRECTED PRN PRN Reason: Keep Vein Open Discontinued Medications Baclofen (Baclofen 10 Mg Tab) 10 mg PO ONETIME ONE Stop: 07/20/21 22:06 Last Admin: 07/21/21 00:00 Dose: 10 mg Documented by: Cyclobenzaprine HCl (Cyclobenzaprine 10 Mg Tab) 10 mg PO ONETIME ONE Stop: 07/20/21 19:59 Last Admin: 07/20/21 20:20 Dose: 10 mg Documented by: Fentanyl (Fentanyl 100 Mcg/2 Ml Sdv) 100 mcg IM ONETIME ONE Stop: 07/20/21 18:41 Last Admin: 07/21/21 00:55 Dose: Not Given Documented by: Hydromorphone HCl (Hydromorphone 0.5 Mg/0.5 Ml Syringe) 0.5 mg IM ONETIME ONE Stop: 07/20/21 18:42 Last Admin: 07/20/21 18:47 Dose: 0.5 mg Documented by: Hydromorphone HCl (Hydromorphone 0.5 Mg/0.5 Ml Syringe) 0.5 mg IM ONETIME ONE Stop: 07/20/21 19:59 Last Admin: 07/20/21 20:20 Dose: 0.5 mg Documented by: Hydromorphone HCl (Hydromorphone 0.5 Mg/0.5 Ml Syringe) 0.5 mg IVPUSH Q4H PRN PRN Reason: Pain (severe 7-10) Last Admin: 07/21/21 04:51 Dose: 0.5 mg Documented by: Morphine Sulfate (Morphine 2 Mg/Ml Syringe) 2 mg IVPUSH Q2H PRN PRN Reason: Pain (moderate 4-6) Last Admin: 07/21/21 03:22 Dose: 2 mg Documented by: Ondansetron HCl (Ondansetron 4 Mg Tab.Dis) 4 mg PO ONETIME ONE Stop: 07/20/21 18:41 Last Admin: 07/20/21 18:47 Dose: 4 mg Documented by: Tramadol HCl (Tramadol 50 Mg Tab) 50 mg PO ONETIME ONE Stop: 07/20/21 18:30 Last Admin: 07/21/21 00:55 Dose: Not Given Documented by: - Exam General: Alert, Oriented, Cooperative, No Acute Distress HEENT: Pupils Equal, EOMI, Mucous Membr. Moist/[place] Neck: Supple, Trachea Midline Lungs: Clear to Auscultation, Normal Respiratory Effort Cardiovascular: Regular Rate, Regular Rhythm GI/Abdominal Exam: Normal Bowel Sounds, Soft, Non-Tender, No Distention Extremities: Non-Tender, No Pedal Edema, Leg Pain Skin: Warm, Dry, Intact Neurological: No New Focal Deficit Psy/Mental Status: Alert, Normal Affect, Normal Mood Sepsis Event Note - Evaluation Sepsis Screening Result: No Definite Risk - Focused Exam Vital Signs: Vital Signs Temp Pulse Resp BP Pulse Ox 07/21/21 19:13 98 F 91 16 157/75 H 95 07/21/21 16:09 97.9 F 96 16 153/76 H 92 L 07/21/21 11:00 97.7 F 75 16 163/84 H 97 - Problem List & Annotations (1) Acute pain due to trauma SNOMED Code(s): 742873056 Code(s): G89.11 - ACUTE PAIN DUE TO TRAUMA Status: Acute Current Visit: Yes (2) Nondisp supracondyl fx of left distal femur with intracondyl extension SNOMED Code(s): 313891642, 138936616, 73207765219013431 Code(s): S72.465A - NONDISP SUPRCNDL FX W INTRCNDL EXTN LOWER END L FEMUR, INIT Status: Acute Current Visit: Yes Qualifiers: Encounter type: initial encounter Fracture type: closed Qualified C ode(s): S72.465A - Nondisplaced supracondylar fracture with intracondylar extension of lower end of left femur, initial encounter for closed fracture (3) Osteoporosis SNOMED Code(s): 80637493 Code(s): M81.0 - AGE-RELATED OSTEOPOROSIS W/O CURRENT PATHOLOGICAL FRACTURE Status: Acute Current Visit: Yes Qualifiers: Presence of current pathological fracture: with current pathological fracture - Problem List Review Problem List Initiated/Reviewed/Updated: Yes - My Orders Last 24 Hours: My Active Orders 07/20/21 23:14 Acetaminophen [TylenoL] 650 mg PO Q4H PRN Resuscitation Status Routine 07/20/21 23:15 Patient Status [ADT] Routine Oxygen Therapy [RC] PRN Vital Signs [RC] Q4H 07/21/21 03:33 Cyclobenzaprine [Flexeril] 10 mg PO Q6H PRN 07/21/21 08:10 Ondansetron [Zofran ODT] 4 mg PO Q4H PRN 07/21/21 08:56 Acetaminophen/HYDROcodone [[place] 325-5 MG] 1 - 2 tab PO Q4H PRN 07/21/21 21:00 Nortriptyline 20 mg PO BEDTIME Pravastatin [Pravachol] 80 mg PO BEDTIME 07/22/21 09:00 FLUoxetine [PROzac] 20 mg PO DAILY - Plan Plan:: Left intercondylar femur fracture with acute pain secondary to fall from step -We have deescalated her pain medication to oral: [place] 04/01/2025 1 to 2 tablets as needed for severe to moderate pain -Continue to use immobilizer brace -Has a walker but may need crutches as she will have to traverse stairs at her home -Be seen by PT tomorrow Osteoporosis with current pathological fracture -She was found to have osteopenia in the past but they were unable to evaluate her spine because she has hardware there. She has had a spinal fracture from a fall from level ground. -Is taking calcium and vitamin D at home, I advised her to continue to do this -I counseled her on needing either a bisphosphonate or Prolia when she sees her PCP next. She states that her mother was on Prolia and that may be easier for her. -I have advised her to stop taking Protonix as she has been taking it for years and studies show that it can deplete calcium stores and lead to worsening osteoporosis especially in postmenopausal women, this was explained to her -She does need a follow-up bone scan however with the current pathological fracture and the history of osteopenia, the diagnosis of osteoporosis is can be made Depression -On home dose of fluoxetine 20 mg, and nortriptyline 20 mg at bedtime Hyperlipidemia -Continue home dose of pravastatin 80 mg VTE prophylaxis: Not indicated GI prophylaxis: Not indicated CODE STATUS: Full code Diet: Regular Plan: To be seen by PT to help her be nonweightbearing on that leg. Renae Evans, DO
[2021-07-22] MEDS: Acetaminophen/HYDROcodone 325-5 MG Tab PO PRN ×4 (02:59→22:34)
[2021-07-22] MEDS: Acetaminophen 325 MG Tab PO PRN (09:41)
[2021-07-22] MEDS: FLUoxetine 20 MG Cap PO SCH (09:44)
--- NOTE | 2021-07-22 09:56 | CR ---
Femur Min 2V Lt CLINICAL HISTORY: Pain, fall FINDINGS: There is a hairline longitudinal lucency through the femoral diaphyseal metaphyseal junction region suspect for nondisplaced fracture. Hip is intact Impression: Longitudinal hairline fracture through the distal femur is suspected
--- NOTE | 2021-07-22 09:58 | CR ---
Knee 3V Lt CLINICAL HISTORY: Fall FINDINGS: There are moderate osteoarthritic changes with periarticular spurring. There is a longitudinal hairline lucency through the distal femur extending into the metaphysis. This is best seen on the sunrise view. Impression: Nondisplaced fracture distal femur Moderate osteoarthritis
--- NOTE | 2021-07-22 10:00 | CR ---
Hand Comp Min 3V Rt CLINICAL HISTORY: Pain, fall FINDINGS: There is no acute fracture or dislocation of the hand. Impression: Negative
--- NOTE | 2021-07-22 10:42 | PCM.PN ---
- General Info Date of Service: 07/22/21 Subjective Update: No acute events overnight. Pain is controlled when she is at rest but she continues to have a fair amount of pain with any attempts to move the leg. Requiring a fair amount of assistance just to get out of bed. Does okay when she is standing on her good leg. Has not worked with physical therapy as of yet. Pain is slowly improving but still fairly intense. She is very nervous about going home with her current level of function. Functional Status: Reports: Pain Controlled, Tolerating Diet - Review of Systems General: Reports: Weakness Musculoskeletal: Reports: Leg Pain - Patient Data Vitals - Most Recent: Last Vital Signs Temp 36.2 C 07/22/21 10:19 Pulse 77 07/22/21 10:19 Resp 18 07/22/21 10:19 BP 138/71 07/22/21 10:19 Pulse Ox 99 07/22/21 10:19 Weight - Most Recent: 110.1 kg I&O - Last 24 Hours: Intake & Output 07/21/21 07/22/21 07/22/21 22:59 06:59 14:59 Intake Total 920 600 260 Balance 920 600 260 Lab Results Last 24 Hours: Laboratory Results - last 24 hr 07/22/21 07/22/21 Range/Units 06:06 06:06 WBC 7.6 (4.5-11.0) K/uL RBC 4.40 (3.30-5.50) M/uL Hgb 13.2 (12.0-15.0) g/dL Hct 40.4 (36.0-48.0) % MCV 92 (80-98) fL MCH 30 (27-31) pg MCHC 33 (32-36) % Plt Count 267 (150-400) K/uL Sodium 138 L (140-148) mmol/L Potassium 3.6 (3.6-5.2) mmol/L Chloride 102 (100-108) mmol/L Carbon Dioxide 27 (21-32) mmol/L Anion Gap 12.6 (5.0-14.0) mmol/L BUN 11 (7-18) mg/dL Creatinine 0.9 (0.6-1.0) mg/dL Est Cr Clr Drug Dosing 61.41 mL/min Estimated GFR (MDRD) > 60 (>60) Glucose 109 H (74-106) mg/dL Calcium 8.8 (8.5-10.1) mg/dL Med Orders - Current: Current Medications Acetaminophen (Acetaminophen 325 Mg Tab) 650 mg PO Q4H PRN PRN Reason: Pain (Mild 1-3)/fever Last Admin: 07/22/21 09:41 Dose: 650 mg Documented by: Hydrocodone Bitart/Acetaminophen (Acetaminophen/Hydrocodone 325-5 Mg Tab) 1 - 2 tab PO Q4H PRN PRN Reason: Pain Last Admin: 07/22/21 02:59 Dose: 2 tab Documented by: Cyclobenzaprine HCl (Cyclobenzaprine 10 Mg Tab) 10 mg PO Q6H PRN PRN Reason: Muscle Spasm - Painful Last Admin: 07/21/21 21:29 Dose: 10 mg Documented by: Fluoxetine HCl (Fluoxetine 20 Mg Cap) 20 mg PO DAILY [facility] Last Admin: 07/22/21 09:44 Dose: 20 mg Documented by: Nortriptyline HCl (Nortriptyline 10 Mg Cap) 20 mg PO BEDTIME [facility] Last Admin: 07/21/21 20:40 Dose: 20 mg Documented by: Ondansetron HCl (Ondansetron 4 Mg Tab.Dis) 4 mg PO Q4H PRN PRN Reason: Nausea/Vomiting Last Admin: 07/21/21 09:45 Dose: 4 mg Documented by: Pravastatin Sodium (Pravastatin 20 Mg Tab) 80 mg PO BEDTIME [facility] Last Admin: 07/21/21 20:40 Dose: 80 mg Documented by: Sodium Chloride (Sodium Chloride 0.9% 10 Ml Syringe) 10 ml FLUSH ASDIRECTED PRN PRN Reason: Keep Vein Open Discontinued Medications Baclofen (Baclofen 10 Mg Tab) 10 mg PO ONETIME ONE Stop: 07/20/21 22:06 Last Admin: 07/21/21 00:00 Dose: 10 mg Documented by: Cyclobenzaprine HCl (Cyclobenzaprine 10 Mg Tab) 10 mg PO ONETIME ONE Stop: 07/20/21 19:59 Last Admin: 07/20/21 20:20 Dose: 10 mg Documented by: Fentanyl (Fentanyl 100 Mcg/2 Ml Sdv) 100 mcg IM ONETIME ONE Stop: 07/20/21 18:41 Last Admin: 07/21/21 00:55 Dose: Not Given Documented by: Hydromorphone HCl (Hydromorphone 0.5 Mg/0.5 Ml Syringe) 0.5 mg IM ONETIME ONE Stop: 07/20/21 18:42 Last Admin: 07/20/21 18:47 Dose: 0.5 mg Documented by: Hydromorphone HCl (Hydromorphone 0.5 Mg/0.5 Ml Syringe) 0.5 mg IM ONETIME ONE Stop: 07/20/21 19:59 Last Admin: 07/20/21 20:20 Dose: 0.5 mg Documented by: Hydromorphone HCl (Hydromorphone 0.5 Mg/0.5 Ml Syringe) 0.5 mg IVPUSH Q4H PRN PRN Reason: Pain (severe 7-10) Last Admin: 07/21/21 04:51 Dose: 0.5 mg Documented by: Morphine Sulfate (Morphine 2 Mg/Ml Syringe) 2 mg IVPUSH Q2H PRN PRN Reason: Pain (moderate 4-6) Last Admin: 07/21/21 03:22 Dose: 2 mg Documented by: Ondansetron HCl (Ondansetron 4 Mg Tab.Dis) 4 mg PO ONETIME ONE Stop: 07/20/21 18:41 Last Admin: 07/20/21 18:47 Dose: 4 mg Documented by: Tramadol HCl (Tramadol 50 Mg Tab) 50 mg PO ONETIME ONE Stop: 07/20/21 18:30 Last Admin: 07/21/21 00:55 Dose: Not Given Documented by: - Exam Quality Assessment: No: Supplemental Oxygen General: Alert, Oriented, Cooperative, No Acute Distress Lungs: Normal Respiratory Effort GI/Abdominal Exam: Soft, No Abnormal Bruit Extremities: No: Pedal Edema Skin: Warm, Dry Psy/Mental Status: Alert, Normal Affect - Patient Data Lab Results Last 24 hrs: Laboratory Results - last 24 hr 07/22/21 07/22/21 Range/Units 06:06 06:06 WBC 7.6 (4.5-11.0) K/uL RBC 4.40 (3.30-5.50) M/uL Hgb 13.2 (12.0-15.0) g/dL Hct 40.4 (36.0-48.0) % MCV 92 (80-98) fL MCH 30 (27-31) pg MCHC 33 (32-36) % Plt Count 267 (150-400) K/uL Sodium 138 L (140-148) mmol/L Potassium 3.6 (3.6-5.2) mmol/L Chloride 102 (100-108) mmol/L Carbon Dioxide 27 (21-32) mmol/L Anion Gap 12.6 (5.0-14.0) mmol/L BUN 11 (7-18) mg/dL Creatinine 0.9 (0.6-1.0) mg/dL Est Cr Clr Drug Dosing 61.41 mL/min Estimated GFR (MDRD) > 60 (>60) Glucose 109 H (74-106) mg/dL Calcium 8.8 (8.5-10.1) mg/dL Result Diagrams: 07/22/21 06:06 07/22/21 06:06 Sepsis Event Note - Evaluation Sepsis Screening Result: No Definite Risk - Focused Exam Vital Signs: Vital Signs Temp Pulse Resp BP Pulse Ox 07/22/21 10:19 36.2 C 77 18 138/71 99 07/22/21 07:00 36.0 C L 81 16 129/79 92 L 07/22/21 03:02 36.0 C L 88 16 147/74 H 96 07/21/21 22:50 36.8 C 90 16 133/73 96 - Problem List Review Problem List Initiated/Reviewed/Updated: Yes - My Orders Last 24 Hours: My Active Orders 07/22/21 09:22 PT Evaluation and Treatment [CONS] Routine 07/22/21 10:40 Weight bearing status [OM.PC] Routine 07/22/21 10:41 Docusate Sodium/Sennosides [Senna Plus] 1 tab PO Q12H PRN tiZANidine [Zanaflex] 2 mg PO Q6H PRN - Plan Plan:: ASSESSMENT AND PLAN - Left intercondylar femur fracture-secondary to small amount of trauma at home. Pain improving but still suboptimally controlled with any sort of activity. She has multiple steps at home that she has not able to navigate at this time. -Symptomatic management of pain -Continue to use immobilizer brace -Physical therapy eval, consider crutches -Outpatient orthopedic follow-up Osteoporosis with current pathological fracture -Stop proton pump inhibitor -Outpatient follow-up to consider medication to increase bone density Depression-stable. -On home dose of fluoxetine 20 mg, and nortriptyline 20 mg at bedtime Hyperlipidemia -Continue home dose of pravastatin 80 mg VTE prophylaxis: SCDs GI prophylaxis: Not indicated CODE STATUS: Full code Diet: Regular Disposition-anticipate discharge home with home care in a day or 2 Sidney Ho MD
[2021-07-22] MEDS: tiZANidine 2 MG Tab PO PRN ×2 (14:27→22:34)
[2021-07-22] MEDS: Nortriptyline 10 MG Cap PO SCH (20:16)
[2021-07-22] MEDS: Pravastatin 20 MG Tab PO SCH (20:16)
[2021-07-23] MEDS: Acetaminophen/HYDROcodone 325-5 MG Tab PO PRN ×3 (05:35→14:39)
[2021-07-23] MEDS: FLUoxetine 20 MG Cap PO SCH (08:37)
--- NOTE | 2021-07-23 12:55 | PCM.SN.2 ---
- Free Text/Narrative Note: On 07/23/2021 I had a [id number] encounter with Amanda Mckenzie regarding the necessity of a wheelchair. She is currently hospitalized following a femur fracture. She has a mobility limitation that significantly impairs her ability to participate in 1 or more mobility related activities of daily living. These include but are not limited to toileting, bathing, dressing and grooming. Due to these mobility limitations the patient cannot adequately use a walker or a cane. Using a wheelchair with leg lifts would significantly improve her ability to perform these activities of daily living. Sidney Ho MD
--- NOTE | 2021-07-23 14:28 | PCM.DCSUM1 ---
Discharge Summary - Hospital Course Brief History: 66-year-old female who presented with left leg pain after falling from a height of one step. She was admitted for pain management of a distal femur fracture. Diagnosis: Stroke: No - Discharge Data Discharge Date: 07/23/21 Discharge Disposition: Home, W Home Health Agency 06 Condition: Fair - Referral to Home Health Date of Face to Face Encounter: 07/23/21 Reason for Homebound Status: femur fracture Primary Care Physician: PCP None Skilled Need: PT and OT - Discharge Diagnosis/Problem(s) (1) Nondisp supracondyl fx of left distal femur with intracondyl extension SNOMED Code(s): 795538334, 542169294, [id number] ICD Code: S72.465A - NONDISP SUPRCNDL FX W INTRCNDL EXTN LOWER END L FEMUR, INIT Status: Acute Current Visit: Yes Qualifiers: Encounter type: initial encounter Fracture type: closed Qualified Code(s): S72.465A - Nondisplaced supracondylar fracture with intracondylar extension of lower end of left femur, initial encounter for closed fracture (2) Osteoporosis SNOMED Code(s): 13102555 ICD Code: M81.0 - AGE-RELATED OSTEOPOROSIS W/O CURRENT PATHOLOGICAL FRACTURE Status: Acute Current Visit: Yes Qualifiers: Osteoporosis type: unspecified Presence of current pathological fracture: with current pathological fracture Encounter type: initial encounter Qualified Code(s): M80.00XA - Age-related osteoporosis with current pathological fracture, unspecified site, initial encounter for fracture - Patient Summary/Data Consults: Consultations 07/22/21 09:22 PT Evaluation and Treatment [CONS] Routine Please Evaluate and Treat. PT Reason for Consult: Ambulation Special Instructions: crutches This query below is only for informational purposes and is not editable. Admission Diagnosis/Problem: Fracture of femur 07/23/21 08:28 Consult to Orthopedics [CONS] Routine Consulting Provider: Dorian Pollard Call Completed to Consulting Physician: Yes Reason for Consult: patient request to see provider for left leg fracture. Hospital Course: Amanda presented to the emergency room with left knee pain after minimal trauma at home after missing a step. Imaging in the emergency room suggested a hairline fracture through the distal femur. On-call orthopedics was consulted and they recommended a knee immobilizer and nonweightbearing status. The patient was admitted for observation to control pain and initiate physical therapy. It did take a couple of days but we were able to achieve adequate pain control. She has been working with physical therapy and making good progress. She is doing well with nonweightbearing on the left leg. We did have Dr Dorian Pollard see her regarding additional management while she was hospitalized. He did make an adjustment to the knee immobilizer. The plan is to continue the nonweightbearing status and she will be following up with orthopedics in about 2 weeks. She was interested in home health care to provide physical and occupational therapy to help ease her transition home. Her and her feel comfortable with the discharge plan and equipment that has been provided. She will utilize either crutches or walker while navigating stairs but likely will require a wheelchair and leg lift for mobility around the house because of significant pain while she is up with crutches or walker and very limited duration of time that she can use these devices. This was her second fracture with very minimal trauma raising concern for underlying osteoporosis. The plan is for her to stop taking her proton pump inhibitor and started on an H2 christine if she needs for her heartburn. She will be discussing medications to help with her bone density at her primary care follow-up. - Patient Instructions Diet: Regular Diet as Tolerated Activity: Partial Weight Bearing (toe touch weight bearing left leg for balance only ) Showering/Bathing: May Shower Notify Provider of: Increased Pain, Swelling and Redness Other/Special Instructions: 1. You were in the hospital for management of a fracture of the distal part of your left femur. After consultation with the orthopedic team we recommend that she use a hinged knee immobilizer to help keep the leg in a position so it can heal. We recommend that you not put any weight on the left leg but if you need to use a slight toe touch for balance this is acceptable. I would recommend that you use 2 tablets of hydrocodone as needed for your moderate or larger pain. You may cut down to 1 tablet as your pain improves. If you have only mild pain you could consider using acetaminophen. I would recommend that you use a stool softener such as senna plus (Senna S) while you are taking pain medications. 2. This is your second fracture with minimal trauma and this raises concern for osteoporosis. We recommend that you stop taking the proton pump inhibitor as this can increase your risk of decreased bone density. If you have difficulty with heartburn you could consider using either ranitidine or famotidine. Both of these are available [id number]. You could also use Tums. At the time of your follow-up with your primary care you should discuss a more aggressive medication to help improve your bone density and reduce the risk of fracture. 3. I have placed a referral to home health care. They will provide physical therapy and occupational therapy services to help ease your transition home after the hospital stay. - Discharge Plan *PRESCRIPTION DRUG MONITORING PROGRAM REVIEWED*: Not Applicable *COPY OF PRESCRIPTION DRUG MONITORING REPORT IN PATIENT LIANET: Not Applicable Prescriptions/Med Rec: Acetaminophen/HYDROcodone [HYDROcodone-Acetaminophen 5-325 MG *] 1 - 2 tab PO Q4H PRN #40 tab PRN Reason: Pain tiZANidine [Zanaflex] 2 mg PO Q6H PRN #15 tablet PRN Reason: Muscle Spasm - Painful Home Medications: Home Meds Calcium Carbonate/Vitamin D3 [Calcium Carbonate/Vitamin D 600 MG-200 Unit] 1 tab PO DAILY 10/26/19 [History] Estrogens, Conjugated [Premarin Vaginal Crm] 1 applic VAG .TWICEWEEKLY 10/26/19 [History] Nortriptyline 20 mg PO BEDTIME 10/26/19 [History] Pravastatin Sodium 80 mg PO BEDTIME 10/26/19 [History] FLUoxetine HCl [Fluoxetine HCl] 20 mg PO DAILY 10/31/19 [History] Lansoprazole [Prevacid] 30 mg PO DAILY 10/31/19 [History] Magnesium Oxide [Magnesium] 400 mg PO DAILY 10/31/19 [History] Acetaminophen/HYDROcodone [HYDROcodone-Acetaminophen 5-325 MG *] 1 - 2 tab PO Q4H PRN #40 tab 07/23/21 [Rx] tiZANidine [Zanaflex] 2 mg PO Q6H PRN #15 tablet 07/23/21 [Rx] Oxygen Therapy Mode: Room Air Patient Handouts: Crutch Use, Adult, [id number], How to Use a Knee Immobilizer, [id number] Referrals: Dorian Pollard MD [Physician] - 08/01/21 9:00 am (Please arrive at 8:30 for a X ray prior to appointment with .) - Discharge Summary/Plan Comment DC Time >30 min.: Yes Total # of Minutes for Discharge Time: 35-set up home care - Patient Data Vitals - Most Recent: Last Vital Signs Temp 36.6 C 07/23/21 10:59 Pulse 80 07/23/21 10:59 Resp 16 07/23/21 10:59 BP 173/89 H 07/23/21 10:59 Pulse Ox 96 07/23/21 10:59 Weight - Most Recent: 110.1 kg I&O - Last 24 hours: Intake & Output 07/22/21 07/23/21 07/23/21 22:59 06:59 14:59 Intake Total 1160 250 350 Balance 1160 250 350 Med Orders - Current: Current Medications Acetaminophen (Acetaminophen 325 Mg Tab) 650 mg PO Q4H PRN PRN Reason: Pain (Mild 1-3)/fever Last Admin: 07/22/21 09:41 Dose: 650 mg Documented by: Hydrocodone Bitart/Acetaminophen (Acetaminophen/Hydrocodone 325-5 Mg Tab) 1 - 2 tab PO Q4H PRN PRN Reason: Pain Last Admin: 07/23/21 10:18 Dose: 2 tab Documented by: Fluoxetine HCl (Fluoxetine 20 Mg Cap) 20 mg PO DAILY [facility] Last Admin: 07/23/21 08:37 Dose: 20 mg Documented by: Nortriptyline HCl (Nortriptyline 10 Mg Cap) 20 mg PO BEDTIME [facility] Last Admin: 07/22/21 20:16 Dose: Not Given Documented by: Ondansetron HCl (Ondansetron 4 Mg Tab.Dis) 4 mg PO Q4H PRN PRN Reason: Nausea/Vomiting Last Admin: 07/21/21 09:45 Dose: 4 mg Documented by: Pravastatin Sodium (Pravastatin 20 Mg Tab) 80 mg PO BEDTIME [facility] Last Admin: 07/22/21 20:16 Dose: Not Given Documented by: Senna/Docusate Sodium (Docusate Sodium/Sennosides 50-8.6 Mg Tab) 1 tab PO Q12H PRN PRN Reason: Constipation Last Admin: 07/23/21 08:37 Dose: 1 tab Documented by: Sodium Chloride (Sodium Chloride 0.9% 10 Ml Syringe) 10 ml FLUSH ASDIRECTED PRN PRN Reason: Keep Vein Open Tizanidine HCl (Tizanidine 2 Mg Tab) 2 mg PO Q6H PRN PRN Reason: Muscle Spasm - Painful Last Admin: 07/22/21 22:34 Dose: 2 mg Documented by: Discontinued Medications Baclofen (Baclofen 10 Mg Tab) 10 mg PO ONETIME ONE Stop: 07/20/21 22:06 Last Admin: 07/21/21 00:00 Dose: 10 mg Documented by: Cyclobenzaprine HCl (Cyclobenzaprine 10 Mg Tab) 10 mg PO ONETIME ONE Stop: 07/20/21 19:59 Last Admin: 07/20/21 20:20 Dose: 10 mg Documented by: Cyclobenzaprine HCl (Cyclobenzaprine 10 Mg Tab) 10 mg PO Q6H PRN PRN Reason: Muscle Spasm - Painful Last Admin: 07/21/21 21:29 Dose: 10 mg Documented by: Fentanyl (Fentanyl 100 Mcg/2 Ml Sdv) 100 mcg IM ONETIME ONE Stop: 07/20/21 18:41 Last Admin: 07/21/21 00:55 Dose: Not Given Documented by: Hydromorphone HCl (Hydromorphone 0.5 Mg/0.5 Ml Syringe) 0.5 mg IM ONETIME ONE Stop: 07/20/21 18:42 Last Admin: 07/20/21 18:47 Dose: 0.5 mg Documented by: Hydromorphone HCl (Hydromorphone 0.5 Mg/0.5 Ml Syringe) 0.5 mg IM ONETIME ONE Stop: 07/20/21 19:59 Last Admin: 07/20/21 20:20 Dose: 0.5 mg Documented by: Hydromorphone HCl (Hydromorphone 0.5 Mg/0.5 Ml Syringe) 0.5 mg IVPUSH Q4H PRN PRN Reason: Pain (severe 7-10) Last Admin: 07/21/21 04:51 Dose: 0.5 mg Documented by: Morphine Sulfate (Morphine 2 Mg/Ml Syringe) 2 mg IVPUSH Q2H PRN PRN Reason: Pain (moderate 4-6) Last Admin: 07/21/21 03:22 Dose: 2 mg Documented by: Ondansetron HCl (Ondansetron 4 Mg Tab.Dis) 4 mg PO ONETIME ONE Stop: 07/20/21 18:41 Last Admin: 07/20/21 18:47 Dose: 4 mg Documented by: Tramadol HCl (Tramadol 50 Mg Tab) 50 mg PO ONETIME ONE Stop: 07/20/21 18:30 Last Admin: 07/21/21 00:55 Dose: Not Given Documented by:
== END 2021-07-23 16:35 | disposition home health service (06) ==
LOC: JP.ED 17:23 → JP.MS 23:15
PROVIDERS: ADMIT Internal Medicine; ATTEND Internal Medicine
DX: S72.465A Nondisplaced supracondylar fracture with intracondylar extension of lower end of left femur, initial encounter for closed fracture (principal); G89.11 Acute pain due to trauma; M17.12 Unilateral primary osteoarthritis, left knee; E78.00 Pure hypercholesterolemia, unspecified; I10 Essential (primary) hypertension; M81.0 Age-related osteoporosis without current pathological fracture; G47.30 Sleep apnea, unspecified; E66.9 Obesity, unspecified; Z68.38 Body mass index [BMI] 38.0-38.9, adult; Z86.010 Personal history of colon polyps; Z87.311 Personal history of (healed) other pathological fracture; Z79.899 Other long term (current) drug therapy; Z88.8 Allergy status to other drugs, medicaments and biological substances; W10.8XXA Fall (on) (from) other stairs and steps, initial encounter
CPT/HCPCS: 36415; 73130; 73552; 73562; 73700; 80048; 85027; 96372; 96374; 96375; 96376; 97116; 97162; 97530; 97535; 99284; A9270; G0378; J1170; J2270

== ENCOUNTER 2021-09-08 08:36 | Emergency (ER) | payer MEDICAID ==
[2021-09-08] MEDS ORDERED: Bupivacaine 0.5% 10 ML SDV INJECT ONE (09:41)
[2021-09-08] MEDS ORDERED: Triamcinolone Acetonide 40 MG/ML 1 ML SDV INJECT PRN (09:41)
--- NOTE | 2021-09-08 10:04 | EDM.PDOC ---
ED HPI GENERAL MEDICAL PROBLEM - General Chief Complaint: Lower Extremity Injury/Pain Stated Complaint: SORE R HIP Time Seen by Provider: 09/08/21 09:20 Source of Information: Reports: Patient, Family History Limitations: Reports: No Limitations - History of Present Illness INITIAL COMMENTS - FREE TEXT/NARRATIVE: 66-year-old female recovering from a left femur fracture, has been increasing activity and over the past 12 hours has developed an intense lateral right hip pain without injury. It seems to be centered around the lateral hip but works its way up into the anterior iliac crest and posterior into the buttock. She has no rash, no pain that extends past the knee. It is painful at rest, more painful with movement or weightbearing. No bruising. Onset: Gradual Duration: Hour(s): (Pain is developed over the last 12 hours) Location: Reports: Lower Extremity, Right Right Hip Pain Score (Numeric/FACES): 8 - Related Data Allergies Allergy/AdvReac Type Severity Reaction Status Date / Time adhesive tape Allergy Rash Verified 09/08/21 09:22 erythromycin base Allergy Other Verified 09/08/21 09:22 glycopyrrolate Allergy Hypertensio Verified 09/08/21 09:22 n meperidine Allergy Hypertensio Verified 09/08/21 09:22 n metoprolol Allergy Rash Verified 09/08/21 09:22 Home Meds: Home Meds Estrogens, Conjugated [Premarin Vaginal Crm] 1 applic VAG .TWICEWEEKLY 10/26/19 [History] Nortriptyline 20 mg PO BEDTIME 10/26/19 [History] Pravastatin Sodium 80 mg PO BEDTIME 10/26/19 [History] FLUoxetine HCl [Fluoxetine HCl] 20 mg PO DAILY 10/31/19 [History] Pantoprazole Sodium [Protonix] 40 mg PO DAILY 07/31/21 [History] Acetaminophen [Tylenol] 650 mg PO Q6H PRN 08/01/21 [History] Ibuprofen [Motrin] 400 mg PO Q6H PRN 08/01/21 [History] tiZANidine 2 mg PO Q6H 08/01/21 [History] Calcium Carbonate/Vitamin D3 [Calcium 600-Vit D3 2,500 Sftgl] 1 tab PO DAILY 08/22/21 [History] Past Medical History HEENT History: Reports: Impaired Vision, Other (See Below) Other HEENT History: wears glasses Cardiovascular History: Reports: Arrhythmia, Blood Clots/VTE/DVT, High Cholesterol, Hypertension Respiratory History: Reports: Sleep Apnea Other Respiratory History: c-pap Gastrointestinal History: Reports: Colon Polyp, Diverticulosis, GERD, Hemorrhoids, Other (See Below) Other Gastrointestinal History: anal fissure, bleeding from polypectomy site after colonoscopy Genitourinary History: Reports: UTI, Recurrent GRANTS DIRECTOR History: Reports: , Spontaneous , Other (See Below) Other GRANTS DIRECTOR History: ovarian cysts Musculoskeletal History: Reports: Arthritis, Fracture, Fibromyalgia, Other (See Below) Other Musculoskeletal History: SI joint pain. LT femur Fx 07/20/21. L knee pain Psychiatric History: Reports: Anxiety, Depression Endocrine/Metabolic History: Reports: Obesity/BMI 30+ Hematologic History: Reports: Anemia Oncologic (Cancer) History: Reports: Basal Cell Carcinoma, Other (See Below) Other Oncologic History: skin cancer on chin - Infectious Disease History Infectious Disease History: Reports: Chicken Pox, Influenza, Mumps - Past Surgical History Head Surgeries/Procedures: Reports: None HEENT Surgical History: Reports: Adenoidectomy, Tonsillectomy, Other (See Below) Other HEENT Surgeries/Procedures: deviated septum repaired, 2 teeth implanted GI Surgical History: Reports: Appendectomy, Colonoscopy, EGD Female Surgical History: Reports: Other (See Below) Other Female Surgeries/Procedures: right ovary removed Neurological Surgical History: Reports: Lumbar Spine, Spinal Fusion Musculoskeletal Surgical History: Reports: Other (See Below) Other Musculoskeletal Surgeries/Procedures:: back fusion Nov 2018 and Fx L3 afte r a fall Dermatological Surgical History: Reports: Other (See Below) Social & Family History - Tobacco Use Tobacco Use Status *Q: Never Tobacco User - Caffeine Use Caffeine Use: Reports: Coffee Other Caffeine Use: 2 large cups of coffee every morning - Recreational Drug Use Recreational Drug Use: No Review of Systems - Review of Systems Review Of Systems: See Below Constitutional: Denies: Fever Eyes: Reports: No Symptoms Mouth/Throat: Reports: No Symptoms Respiratory: Reports: No Symptoms Cardiovascular: Reports: No Symptoms Musculoskeletal: Reports: Other (Patient is undergoing therapy for lots of soft tissue pain and has known osteoporosis) Skin: Denies: Bruising Neurological: Denies: Headache ED EXAM, GENERAL - Physical Exam Exam: See Below Exam Limited By: No Limitations General Appearance: Alert, No Apparent Distress (Uncomfortable but not distressed) Head: Atraumatic Respiratory/Chest: Lungs Clear Cardiovascular: Regular Rate, Rhythm GI/Abdominal: Soft, Non-Tender Extremities: Other (Patient is tender over the greater trochanteric area of the right hip, but also tender over the proximal right gluteus and anterior right iliac crest area. No rash, no deformity or swelling, no bruising. There is some pain with hip flexion passively) Course - Vital Signs Last Recorded V/S: Last Vital Signs Temp 97.7 F 09/08/21 09:24 Pulse 78 09/08/21 09:24 Resp 16 09/08/21 09:24 BP 137/70 09/08/21 09:24 Pulse Ox 99 09/08/21 09:24 - Orders/Labs/Meds Meds: Medications Discontinued Medications Generic Name Dose Route Start Last Admin Trade Name Freq PRN Reason Stop Dose Admin Bupivacaine HCl 10 ml 09/08/21 09:41 09/08/21 09:58 Bupivacaine 0.5% 10 Ml Sdv INJECT 09/08/21 09:42 10 ml ONETIME ONE Administration Triamcinolone Acetonide 40 mg 09/08/21 09:41 09/08/21 09:58 Triamcinolone Acetonide 40 Mg/Ml 1 Ml Sdv INJECT 40 mg ASDIRECTED PRN Administration Pain (moderate 4-6) - Re-Assessments/Exams Free Text/Narrative Re-Assessment/Exam: 09/08/21 10:03 This patient does have a lot of tenderness over the greater trochanteric bursa, 40 mg of Kenalog and 10 cc of Marcaine were infiltrated in a fan distribution under sterile conditions around and into the greater trochanteric area. Patient had some improvement of symptoms, I encouraged her to continue with her anti- inflammatories and add her oxycodone if needed. Call Dr. Pollard this week to update him on symptoms. 09/08/21 10:20 Prior to discharge the patient ambulated in the rodriguez with the assistance of crutches and felt significantly better. Departure - Departure Time of Disposition: 10:21 Disposition: Home, Self-Care 01 Clinical Impression: Greater trochanteric bursitis of right hip - Discharge Information Instructions: Bursitis, [id number] Referrals: Kimi Ruiz MD [Primary Care Provider] - Forms: ED Department Discharge Care Plan Goals: Continue with anti-inflammatories, add oxycodone if needed and increase activity as tolerated. Call Dr. Pollard with an update this week. Sepsis Event Note (ED) - Evaluation Sepsis Screening Result: No Definite Risk - Focused Exam Vital Signs: Vital Signs Temp Pulse Resp BP Pulse Ox 09/08/21 09:24 97.7 F 78 16 137/70 99
== END 2021-09-08 10:23 | disposition home or self-care (01) ==
LOC: JP.ED 08:36
DX: M70.61 Trochanteric bursitis, right hip (principal); I10 Essential (primary) hypertension; K21.9 Gastro-esophageal reflux disease without esophagitis; M19.90 Unspecified osteoarthritis, unspecified site; E66.9 Obesity, unspecified; Z68.35 Body mass index [BMI] 35.0-35.9, adult; Z91.048 Other nonmedicinal substance allergy status; Z88.1 Allergy status to other antibiotic agents; Z88.8 Allergy status to other drugs, medicaments and biological substances; Z88.5 Allergy status to narcotic agent; Z79.899 Other long term (current) drug therapy
CPT/HCPCS: 99283; J3301; J3490

== ENCOUNTER 2023-09-07 07:20 | Day surgery (SDC) | payer MEDICARE ==
[2023-09-07] MEDS ORDERED: Nozin Nasal Sanitizer NASBOTH ONE (07:40)
[2023-09-07 07:45] LABS: HEMATOCRIT 44.3 % (34.3-46.0); HEMOGLOBIN 14.5 g/dL (11.2-15.5); MEAN CORPUSCULAR HEMOGLOBIN 30.4 pg (31.6-35.5); MEAN CORPUSCULAR HGB CONC 32.7 g/dL (31.6-35.5); MEAN CORPUSCULAR VOLUME 92.9 fL (81.4-99.0); RED BLOOD CELL COUNT 4.77 M/uL (3.77-5.24); WHITE BLOOD CELL COUNT,WBC 6.8 K/uL (3.2-11.0)
[2023-09-07] MEDS ORDERED: Lactated Ringers 1,000 ML IV SCH (08:00)
[2023-09-07] MEDS ORDERED: Dextrose 5%-Lactated Ringers 1,000 ML IV SCH (08:00)
[2023-09-07] MEDS ORDERED: ceFAZolin 2 GM in Premix Bag 1 BAG IV ONE (08:00)
[2023-09-07 08:06] LABS: A/G RATIO 1.2 (1.2-2.2); ALANINE AMINOTRANSFERASE,ALT 34 U/L (12-78); ALBUMIN 3.9 g/dL (3.4-5.0); ALKALINE PHOSPHATASE 65 U/L (46-116); ANION GAP 8.2 mmol/L (5.0-14.0); ASPARTATE AMNIOTRANSFERASE,AST 17 U/L (15-37); BILIRUBIN TOTAL 0.5 mg/dL (0.2-1.0); BLOOD UREA NITROGEN,BUN 12 mg/dL (7-18); CALCIUM 9.3 mg/dL (8.5-10.1); CARBON DIOXIDE,CO2 30 mmol/L (21-32); CHLORIDE,CL 102 mmol/L (100-108); CREATININE 0.8 mg/dL (0.6-1.0); EST CRCL DRUG DOSING (CG) 69.78 mL/min; ESTIMATED GFR 81 mL/min (>60); GLUCOSE RANDOM 105 mg/dL (74-106); POTASSIUM,K 4.3 mmol/L (3.6-5.2); PROTEIN TOTAL,TP 7.2 g/dL (6.4-8.2); SODIUM,NA 140 mmol/L (140-148)
[2023-09-07] MEDS ORDERED: fentaNYL 250 MCG/5 ML SDV ONE (08:53)
[2023-09-07] MEDS ORDERED: Succinylcholine 200 MG/10 ML MDV ONE (08:54)
[2023-09-07] MEDS ORDERED: Glycopyrrolate 0.2 MG/ML 5 ML MDV ONE (08:54)
[2023-09-07] MEDS ORDERED: Ondansetron 4 MG/2 ML SDV ONE (08:54)
[2023-09-07] MEDS ORDERED: Neostigmine Methylsulfate 1 MG/ML 5 ML Syringe ONE (08:54)
[2023-09-07] MEDS ORDERED: Dexamethasone 4 MG/ML SDV ONE (08:54)
[2023-09-07] MEDS ORDERED: Propofol 200 MG/20 ML SDV ONE (08:54)
[2023-09-07] MEDS ORDERED: Rocuronium 50 MG/5 ML Vial ONE (08:54)
[2023-09-07] MEDS ORDERED: Bupivacaine 0.5% 50 ML MDV ONE (09:06)
[2023-09-07] MEDS ORDERED: ePHEDrine 50 MG/ML SDV ONE (10:58)
[2023-09-07] MEDS ORDERED: Sugammadex Sodium 200 MG/2 ML VIAL ONE (10:59)
[2023-09-07] MEDS ORDERED: Acetaminophen/HYDROcodone 325-5 MG Tab PO ONE (12:46)
== END 2023-09-07 13:50 | disposition home or self-care (01) ==
LOC: JP.SDS 07:20
PROVIDERS: ATTEND Specialist
DX: S73.191A Other sprain of right hip, initial encounter (principal); F41.9 Anxiety disorder, unspecified; G47.33 Obstructive sleep apnea (adult) (pediatric); K21.9 Gastro-esophageal reflux disease without esophagitis; F32.A Depression, unspecified; I10 Essential (primary) hypertension; E78.00 Pure hypercholesterolemia, unspecified; E66.9 Obesity, unspecified; Z88.8 Allergy status to other drugs, medicaments and biological substances; Z86.718 Personal history of other venous thrombosis and embolism; Z85.828 Personal history of other malignant neoplasm of skin; Z88.1 Allergy status to other antibiotic agents; Z91.048 Other nonmedicinal substance allergy status; Z88.7 Allergy status to serum and vaccine; Z79.899 Other long term (current) drug therapy; M24.851 Other specific joint derangements of right hip, not elsewhere classified
CPT/HCPCS: 29862; 36415; 76000; 80053; 85027; A9270; J0330; J0690; J1100; J2405; J2704; J3010; J3490; J7120; J2710

== ENCOUNTER 2025-04-02 16:21 | Emergency (ER) | payer MEDICARE ==
[2025-04-02] MEDS: Prochlorperazine 10 MG/2 ML SDV IVPUSH ONE (17:48)
[2025-04-02] MEDS: Sodium Chloride 0.9% 1,000 ML IV SCH (17:49)
[2025-04-02 17:53] LABS: BASOPHILS PERCENT AUTO 0.3 % (0.1-1.3); EOSINOPHILS ABSOLUTE AUTO 0.03 K/uL (0.00-0.40); EOSINOPHILS PERCENT AUTO 0.4 % (0.0-5.4); HEMATOCRIT 44.9 % (34.3-46.0); IMMATURE GRAN PERCENT AUTO 0.3 % (0.0-0.7); LYMPHOCYTES ABSOLUTE AUTO 1.26 K/uL (0.8-3.3); LYMPHOCYTES PERCENT AUTO 18.2 % (11.4-47.7); MEAN CORPUSCULAR HEMOGLOBIN 30.3 pg (31.6-35.5); MEAN CORPUSCULAR HGB CONC 33.4 g/dL (31.6-35.5); MEAN CORPUSCULAR VOLUME 90.7 fL (81.4-99.0); MONOCYTES ABSOLUTE AUTO 0.43 K/uL (0.20-0.90); MONOCYTES PERCENT AUTO 6.2 % (3.3-12.6); NEUTROPHILS ABSOLUTE AUTO 5.16 K/uL (1.0-7.6); NEUTROPHILS PERCENT AUTO 74.6 % (40.0-78.1); PLATELET COUNT,PLT 140 K/uL (130-375); RED BLOOD CELL COUNT 4.95 M/uL (3.77-5.24); WHITE BLOOD CELL COUNT,WBC 6.9 K/uL (3.2-11.0)
[2025-04-02 17:56] LABS: A/G RATIO 1.2 (1.2-2.2); ALANINE AMINOTRANSFERASE,ALT 37 U/L (12-78); ALBUMIN 3.8 g/dL (3.4-5.0); ALKALINE PHOSPHATASE 56 U/L (46-116); ANION GAP 12.5 mmol/L (5.0-14.0); ASPARTATE AMNIOTRANSFERASE,AST 27 U/L (15-37); BILIRUBIN TOTAL 0.7 mg/dL (0.2-1.0); BLOOD UREA NITROGEN,BUN 11 mg/dL (7-18); CALCIUM 9.2 mg/dL (8.5-10.1); CARBON DIOXIDE,CO2 27 mmol/L (21-32); CHLORIDE,CL 102 mmol/L (100-108); CREATININE 0.7 mg/dL (0.6-1.0); EST CRCL DRUG DOSING (CG) 78.67 mL/min; ESTIMATED GFR 95 mL/min (>60); GLUCOSE RANDOM 104 mg/dL (74-106); POTASSIUM,K 4.1 mmol/L (3.6-5.2); PROTEIN TOTAL,TP 6.9 g/dL (6.4-8.2); SODIUM,NA 141 mmol/L (140-148)
[2025-04-02 18:01] LABS: BASOPHILS ABSOLUTE AUTO 0.02 K/uL (0.00-0.10); IMMATURE GRAN ABSOLUTE AUTO 0.02 K/uL (0.00-0.23)
[2025-04-02] MEDS: Sodium Chloride 0.9% 80 ML IV SCH (18:40)
[2025-04-02] MEDS: Sodium Chloride 0.9% 10 ML Syringe FLUSH ONE (18:40)
[2025-04-02] MEDS: Iopamidol 612 MG/ML 100 ML Bottle IV PRN (18:40)
== END 2025-04-02 20:09 | disposition home or self-care (01) ==
LOC: JP.ED 16:21
DX: R10.13 Epigastric pain (principal); R19.7 Diarrhea, unspecified; I10 Essential (primary) hypertension; E78.00 Pure hypercholesterolemia, unspecified; Z91.048 Other nonmedicinal substance allergy status; Z88.1 Allergy status to other antibiotic agents; Z88.7 Allergy status to serum and vaccine; Z79.899 Other long term (current) drug therapy; Z88.8 Allergy status to other drugs, medicaments and biological substances
CPT/HCPCS: 36415; 74177; 80053; 85025; 96361; 96374; 99284; J0780; J7030; Q9967

== ENCOUNTER 2025-04-12 20:18 | Emergency (ER) | payer MEDICARE ==
[2025-04-12] MEDS ORDERED: Naloxone 0.4 MG/ML SDV IVPUSH PRN (21:03)
[2025-04-12 21:42] LABS: BASOPHILS PERCENT AUTO 0.2 % (0.1-1.3); EOSINOPHILS ABSOLUTE AUTO 0.14 K/uL (0.00-0.40); EOSINOPHILS PERCENT AUTO 1.4 % (0.0-5.4); HEMATOCRIT 46.9 % (34.3-46.0); HEMOGLOBIN 15.2 g/dL (11.2-15.5); IMMATURE GRAN ABSOLUTE AUTO 0.05 K/uL (0.00-0.23); IMMATURE GRAN PERCENT AUTO 0.5 % (0.0-0.7); LYMPHOCYTES PERCENT AUTO 12.6 % (11.4-47.7); MEAN CORPUSCULAR HEMOGLOBIN 30.3 pg (31.6-35.5); MEAN CORPUSCULAR HGB CONC 32.4 g/dL (31.6-35.5); MEAN CORPUSCULAR VOLUME 93.4 fL (81.4-99.0); MONOCYTES ABSOLUTE AUTO 0.54 K/uL (0.20-0.90); MONOCYTES PERCENT AUTO 5.2 % (3.3-12.6); NEUTROPHILS ABSOLUTE AUTO 8.25 K/uL (1.0-7.6); NEUTROPHILS PERCENT AUTO 80.1 % (40.0-78.1); PLATELET COUNT,PLT 287 K/uL (130-375); RED BLOOD CELL COUNT 5.02 M/uL (3.77-5.24); WHITE BLOOD CELL COUNT,WBC 10.3 K/uL (3.2-11.0)
[2025-04-12 21:44] LABS: BASOPHILS ABSOLUTE AUTO 0.02 K/uL (0.00-0.10)
[2025-04-12] MEDS: HYDROmorphone 0.5 MG/0.5 ML Syringe IVPUSH ONE (21:45)
[2025-04-12] MEDS: Metoclopramide 10 MG/2 ML SDV IVPUSH ONE (21:45)
[2025-04-12] MEDS: Sodium Chloride 0.9% 1,000 ML IV ONE (21:46)
[2025-04-12] MEDS: Sodium Chloride 0.9% 10 ML Syringe FLUSH ONE (21:48)
[2025-04-12 22:07] LABS: A/G RATIO 1.3 (1.2-2.2); ALANINE AMINOTRANSFERASE,ALT 22 U/L (12-78); ALKALINE PHOSPHATASE 60 U/L (46-116); ASPARTATE AMNIOTRANSFERASE,AST 15 U/L (15-37); BILIRUBIN TOTAL 0.7 mg/dL (0.2-1.0); BLOOD UREA NITROGEN,BUN 14 mg/dL (7-18); C-REACTIVE PROTEIN < 0.50 mg/dL (<0.50); CALCIUM 9.4 mg/dL (8.5-10.1); CARBON DIOXIDE,CO2 28 mmol/L (21-32); CHLORIDE,CL 102 mmol/L (100-108); CREATININE 0.8 mg/dL (0.6-1.0); EST CRCL DRUG DOSING (CG) 67.89 mL/min; ESTIMATED GFR 80 mL/min (>60); GLUCOSE RANDOM 112 mg/dL (74-106); PROTEIN TOTAL,TP 7.1 g/dL (6.4-8.2); SODIUM,NA 142 mmol/L (140-148); TROPONIN I HIGH SENSITIVITY < 4.0 pg/mL (<=60.3)
[2025-04-12] MEDS: Sodium Chloride 0.9% 10 ML Syringe FLUSH PRN (22:07)
[2025-04-12] MEDS: Iopamidol 612 MG/ML 100 ML Bottle IV SCH (22:07)
[2025-04-12] MEDS: Sodium Chloride 0.9% 80 ML IV SCH (22:07)
== END 2025-04-12 23:39 | disposition home or self-care (01) ==
LOC: JP.ED 20:18
DX: R10.33 Periumbilical pain (principal); R11.2 Nausea with vomiting, unspecified; I10 Essential (primary) hypertension; E78.00 Pure hypercholesterolemia, unspecified; K21.9 Gastro-esophageal reflux disease without esophagitis; E66.9 Obesity, unspecified; Z79.899 Other long term (current) drug therapy; Z88.8 Allergy status to other drugs, medicaments and biological substances; Z88.7 Allergy status to serum and vaccine; Z91.048 Other nonmedicinal substance allergy status; Z88.1 Allergy status to other antibiotic agents; Z68.33 Body mass index [BMI] 33.0-33.9, adult
CPT/HCPCS: 36415; 74177; 80053; 83605; 83690; 84484; 85025; 86140; 93005; 96361; 96374; 96375; 99284; J2765; J7030; Q9967

== ENCOUNTER 2025-06-28 12:45 | Emergency (ER) | payer MEDICARE ==
[2025-06-28 13:27] LABS: APPEARANCE,URINE SLIGHTLY CLOUDY (CLEAR); GLUCOSE,URINE NEGATIVE (NEGATIVE); OCCULT BLOOD,URINE TRACE-INTACT (NEGATIVE)
[2025-06-28 13:35] LABS: SQUAMOUS EPITHELIAL CELLS,UR MANY /HPF; UROTHELIAL CELLS,URINE NOT SEEN /HPF
[2025-06-28 14:16] LABS: BASE EXCESS VENOUS -0.8 mm/L; BICARBONATE,VENOUS 22.9 mmol/L; O2 SATURATION VENOUS 55.0; OXYHEMOGLOBIN 53.7 %; PCO2 VENOUS 36.6 mm/Hg; PH,VENOUS 7.412 (7.350-7.450); TOTAL HEMOGLOBIN 16.3 g/dL (12.0-16.0)
[2025-06-28 14:18] LABS: PLATELET COUNT,PLT 221 K/uL (130-375); RED BLOOD CELL COUNT 5.02 M/uL (3.77-5.24); WHITE BLOOD CELL COUNT,WBC 5.5 K/uL (3.2-11.0)
[2025-06-28 14:24] LABS: PO2 VENOUS 29.8 mm/Hg
[2025-06-28 14:40] LABS: A/G RATIO 1.0 (1.2-2.2); ALANINE AMINOTRANSFERASE,ALT 71 U/L (12-78); ASPARTATE AMNIOTRANSFERASE,AST 68 U/L (15-37); BILIRUBIN TOTAL 0.5 mg/dL (0.2-1.0); BLOOD UREA NITROGEN,BUN 12 mg/dL (7-18); CARBON DIOXIDE,CO2 25 mmol/L (21-32); CHLORIDE,CL 100 mmol/L (100-108); CREATININE 1.2 mg/dL (0.6-1.0); EST CRCL DRUG DOSING (CG) 43.63 mL/min; ESTIMATED GFR 49 mL/min (>60); GLUCOSE RANDOM 128 mg/dL (74-106); POTASSIUM,K 3.4 mmol/L (3.6-5.2); PROTEIN TOTAL,TP 7.8 g/dL (6.4-8.2); SODIUM,NA 137 mmol/L (140-148)
[2025-06-28 14:52] LABS: BAND ABSOLUTE MAN 0.77 K/uL; BAND PERCENT MAN 14 % (5-11); EOSINOPHILS ABSOLUTE MAN 0.06 K/uL (0.00-0.40); EOSINOPHILS PERCENT MAN 1 % (2-4); LYMPHOCYTES ABSOLUTE MAN 0.83 K/uL (0.8-3.3); LYMPHOCYTES PERCENT MAN 15 % (24-44); MONOCYTES ABSOLUTE MAN 0.44 K/uL (0.20-0.90); MONOCYTES PERCENT MAN 8 % (2-6); NEUTROPHILS ABSOLUTE MAN 3.41 K/uL (1.0-7.6); SEG NEUTROPHILS PERCENT MAN 62 % (36-66)
== END 2025-06-28 15:49 | disposition home or self-care (01) ==
LOC: JP.ED 12:45
DX: S80.261A Insect bite (nonvenomous), right knee, initial encounter (principal); E78.00 Pure hypercholesterolemia, unspecified; I10 Essential (primary) hypertension; K21.9 Gastro-esophageal reflux disease without esophagitis; Z86.16 Personal history of COVID-19; Z91.048 Other nonmedicinal substance allergy status; Z88.7 Allergy status to serum and vaccine; Z88.8 Allergy status to other drugs, medicaments and biological substances; Z88.1 Allergy status to other antibiotic agents; Z79.899 Other long term (current) drug therapy; W57.XXXA Bitten or stung by nonvenomous insect and other nonvenomous arthropods, initial encounter
CPT/HCPCS: 36415; 80053; 81001; 82803; 83605; 83735; 85025; 86140; 86618; 87426-QW; 87468; 87469; 87484; 87798; 99284